=== PATIENT | female | born 1940 ===

== ENCOUNTER 2020-03-14 15:13 | Inpatient (IN) | payer MEDICARE ==
[~2020-03-14] VITALS: Ht 157.5 cm; Wt 63.0 kg
--- NOTE | ~2020-03-14 | HEMODYNAMI ---
PATIENT:JACK HELM MEDICAL RECORD: [id number] : 42 LOCATION:[facility] D.2109 ADMISSION DATE: 03/14/20 Generatedon:03/24/202015:24 Patient name: JACK HELM Patient #: [id number] SSN: [id number] : 1940 Date of study: 03/24/2020 Page: Of Hemodynamic Procedure Report Patient Data Patient Demographics Procedure consent was obtained First Name: JACK Gender: Female Last Name: ALICJA : 1940 Patient #: [id number] Age: 79 year(s) Race: Unknown SSN: [id number] Additional ID: [id number] Contact details Address: [address] [place] [address] State: [place] City: [place] Zip code: [address] Past Medical History History of disease Date Diagnosis Comments Renal failure->Dialysis Allergies Allergen Reaction Date Comments Reported Codeine 03/24/2020 Admission Admission Data Admission Date: 03/14/2020 Admission Time: 18:47 Arrival Date: 03/24/2020 Arrival Time: 0:00 Room #: D.2109 Height (in.): 62.2 BSA: 1.7 (m2) Height (cm.): 158 BMI: 27.24 (kg/m2) Weight (lbs.): 149.92 Weight (kg.): 68 Medications upon Admission Medications Dosage Times Administered Last Remarks per Delivery Day Date and Time COLBY Inhibitor (any) Lab Results Lab Result Date: 03/24/2020 Lab Result Time: 0:00 Biochemistry Name Units Result Min Max Creatinine mg/dl 6.2 --(----)-* 0.6 1.3 eGFR ml/min 7.246824 *-(----)-- 90 120 AM Potassium mmol/l 4.8 --(---*)-- 3.5 5.1 CBC Name Units Result Min Max Hematocrit % 28.9 *-(----)-- 42 54 Hemoglobin g/dl 9.2 *-(----)-- 13.5 17.5 Procedure Procedure Types Cath Procedure Diagnostic Procedure [facility] w/Coronaries Procedure Description Procedure Date Procedure Date: 03/24/2020 Procedure Start Time: 15:13 Procedure End Time: 15:22 Procedure Staff Name Function David Nuñez MD Performing Physician Jania Hernandez RT Monitor Dora Lopez RT Scrub Angelica Medina RN Nurse Procedure Data Cath Procedure Fluoroscopy Diagnostic fluoroscopy Total fluoroscopy Time: 0.9 time: 0.9 min min Diagnostic fluoroscopy Total fluoroscopy dose: 272 dose: 272 mGy mGy Contrast Material Contrast Material Type Amount (ml) Isovue 300 54 Entry Location Entry Primary Successful Side Size Upsize Upsize Entry Closure Succes sful Closure Location (Fr) 1 (Fr) 2 (Fr) Remarks Device Remarks Femoral Left 5 Fr Exoseal artery Estimated blood loss: 5 ml Diagnostic catheters Device Type Used For End Catheter Placement MULTIPACK JL 4.0 5Fr Left Coronary catheter Angiography MULTIPACK 3DRC 5Fr Right Coronary catheter Angiography MULTIPACK Pigtail 5 Fr LV Angiography catheter Procedure Complications No complications Procedure Medications Medication Administration Route Dosage 0.9% NaCl I.V. 100 ml/hr Oxygen 6 l/min Lidocaine 2% added to field 20 Heparin Flush Bag added to field 2 bags (1000units/500ml NS) Versed I.V. 1 mg Fentanyl I.V. 25 mcg Hemodynamics Rest BSA: 1.7 (m2) HGB: 9.2 (g/dl) O2 Consumption: Estimated: 157.58 (ml/min) O2 Cons umption indexed: Estimated:92.69 (ml/min/m) Heart Rate: 76 (bpm) Pressure Samples Time Site Value (mmHg) Purpose Heart Use Rate(bpm) 15:16 LV 163/14,33 Snapshot 80 15:18 AO 156/68(102) Pullback 80 15:18 LV 56/56,-18 Pullback 80 Gradients Valve Time Site 1 Site 2 Mean SEP/DFP Peak To Heart Use (mmHg) (sec/min) Peak Rate (mmHg) (bpm) Aortic 15:17 LV AO 80 Aortic 15:18 LV AO 0 80 56/56,-18 156/68(102) Calculations Valve P-P Mean Valve Index Valve Source Name Gradient Area Flow (cm2) Aortic 0 0 Snapshots Pre Cath Intra NCS Post Cath Vital Signs Time Heart Resp SPO2 etCO2 NIBP (mmHg) Rhythm Pain Sedation Rate (ipm) (%) (mmHg) Status Level (bpm) 15:03:59 78 25 97 0 108/98(104) NSR 0 (11) 10(A) , No pain 15:08:58 78 27 96 0 Measuring NSR 0 (11) 10(A) , No pain 15:09:07 77 26 97 0 170/88(115) NSR 0 (11) 10(A) , No pain 15:13:33 80 21 95 0 166/89(128) NSR 0 (11) 10(A) , No pain 15:17:57 80 20 96 0 168/92(120) NSR 0 (11) 10(A) , No pain 15:22:21 78 19 93 0 156/89(130) NSR 0 (11) 10(A) , No pain Medications Time Medication Route Dose Verified Delivered Reason Notes Effe ctiveness by by 15:03:05 0.9% NaCl I.V. 100 David Angelica used for ml/hr SavannahCrescencio Medina procedure MD GREY 15:03:11 Oxygen HFNC 6 David Angelica used for l/min St Crescencio Medina procedure MD GREY 15:03:17 Lidocaine 2% added 20ml David Hernandez for local to vial [facility] anesthetic field MD AGUERO 15:03:21 Heparin Flush added 2 David David used for Bag to bags [facility] John procedure (1000units/500ml field MD AGUERO NS) 15:11:58 Versed I.V. 1 mg David Chuayla for St Crescencio Medina sedation MD GREY 15:12:04 Fentanyl I.V. 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 14:39:50 Pt presents w/ arrythmia, sustained VT during dialysis. 14:41:25 Procedure Status Urgent Heart Cath (IP). 14:41:28 Dora Lopez RT(R) sent for patient. Start room use. 14:41:29 Time tracking: Regular hours (M-F 7:00 - 5:00) 14:41:34 Plan of Care:Hemodynamics will remain stable., Cardiac rhythm will remain stable., Comfort level will be maintained., Respiratory function will remain adequate., Patient/ family verbilizes understanding of procedure., Procedure tolerated without complication., Recovers from procedure without complications.. 14:41:40 Full Disclosure recording started 14:41:44 H&P Date Dictated: 03/24/2020 Within 30 days and on chart.. 14:41:51 Patient NPO since Midnight. 14:42:00 Patient allergic to Codeine 14:42:04 Is the patient allergic to Iodine/contrast media? No. 14:42:05 Was the patient premedicated? N/A 14:42:08 Is patient on blood thinner?No 14:42:12 ACC The patient was administered the following blood thiners within the last 24 hours: ACCLovenox 14:42:25 Patient diabetic? Yes. 14:42:59 Patient not . Patient is over age 55. 14:43:07 Stress Test: no; N/A ? 14:43:56 Lab Result : Potassium 4.8 mmol/l 14:43:56 Lab Result : eGFR AM 7.982079 ml/min 14:43:56 Lab Result : Creatinine 6.2 mg/dl 14:43:56 Lab Result : Hemoglobin 9.2 g/dl 14:43:56 Lab Result : Hematocrit 28.9 % 14:44:00 Lab results completed and on chart. 14:45:07 Patient Height : 62.2 inches 14:45:11 Patient Weight : 149.92 lbs 14:45:52 Diagnostic Cath Status : Urgent 14:48:16 Patient received from Med II to CCL 1 Alert and oriented. Tansferred to table in Supine position. 14:48:18 Warm blankets applied, and sydnie hugger turned on for patient comfort. 14:48:18 Correct patient and procedure confirmed by team. 14:48:19 ECG and BP/O2 sat monitors applied to patient. 14:48:22 Pre-procedure instructions explained to patient. 14:48:22 Pre-op teaching completed and patient verbalized understanding. 14:48:43 Family unavailable. 14:48:50 Risk of Mortality: 2.7 14:48:53 Risk of blood transfusion: 20.9 14:48:56 Risk of NUZHAT: 21.0 15:02:39 Vital chart was started 15:03:05 0.9% NaCl 100 ml/hr I.V. was administered by Angelica Medina RN; used for procedure; Verbal order read back and verified. 15:03:11 Oxygen 6 l/min HFNC was administered by Angelica Medina RN; used for procedure; Verbal order read back and verified. 15:03:17 Lidocaine 2% 20ml vial added to field was administered by David Nuñez MD; for local anesthetic; Verbal order read back and verified. 15:03:21 Heparin Flush Bag (1000units/500ml NS) 2 bags added to field was administered by David Nuñez MD; used for procedure; Verbal order read back and verified. 15:05:04 Baseline sample Acquired. 15:05:24 ----Pre-sedation anethsthesia assessment.---- 15:05:31 Snore? Yes 15:06:04 Previous problem with sedation/anesthesia? No ? 15:06:08 Sleep apnea? No 15:06:10 Deviated septum? Unknown 15:06:13 Opens mouth fully? Yes 15:06:16 Sticks out tongue? Yes 15:06:33 Airway obstruction? Yes ASTHMA 15:06:35 Pt arrived to on 6L HFNC. HONEY EtCO2 d/t HFNC. 15:06:40 Dentures? Yes IN TIGHT 15:06:52 Pre procedure: left dorsailis pedis pulse 1+ Palpable, but thready & weak; easily obliterated 15:07:09 IV patent on arrival in left forearm with 0.9% NaCl at KVO. 15:07:21 Left groin area was prepped with chlora-prep and draped in sterile fashion 15:07:27 Alarms reviewed by R. N. 15:07:28 Sharps counted by scrub and verified by R.N. 15:07:34 Use device set Femoral Dx 15:10:31 ACIST Syringe (76367) opened to sterile field. 15:10:34 Bag Decanter () opened to sterile field. 15:10:35 Medline Cath Pack ([id number]) opened to sterile field. 15:10:42 ACIST Hand Control (90978) opened to sterile field. 15:10:43 ACIST Manifold (99019) opened to sterile field. 15:10:43 DIAGNOSTIC Multipack 5Fr catheter set (KI5555) opened to sterile field. 15:10:46 SHEATH 5FR Stamping Ground (MNC302) opened to sterile field. 15:10:47 EMERALD Guide Wire (340-446) opened to sterile field. 15:10:49 Tegaderm 4 x 4 (1626W) opened to sterile field. 15:11:01 Physician arrived 15:11:02 --------ALL STOP TIME OUT------ 15:11:03 Final Timeout: patient, procedure, and site verified with staff and physician. All members of the team are in agreement. 15:11:06 Left groin site verified by team. 15:11:11 Fire Safety Assessment: A--An alcohol-based skin anteseptic being used preoperatively., C--Open oxygen or nitrous oxide is being used., D--An ESU, laser, or fiber-optic light is being used. 15:11:15 Physical assessment completed. ASA score P 3 - A patient with severe systemic disease as per David Nuñez MD. 15:11:58 Versed 1 mg I.V. was administered by Angelica Medina RN; for sedation; Verbal order read back and verified. 15:12:04 Fentanyl 25 mcg I.V. was administered by Angelica Medina RN; for sedation; Verbal order read back and verified. 15:12:12 5) <15 or on dialysis Very severe, or end stage kidney failure. 15:12:18 Maximum allowable contrast dose (3.7 X eGFR X 0.75)19 ml. 15:12:25 Sedation plan: IV Moderate Sedation Medication:Versed, Fentanyl 15:12:31 Procedure started. 15:13:06 Local anesthetic to left femerol artery with Lidocaine 2% by David Nuñez MD.INITIAL ACCESS ONLY 15:13:20 A 5 Fr sheath was inserted into the Left Femoral artery 15:13:44 A MULTIPACK JL 4.0 5Fr catheter was advanced over the wire and used for Left Coronary Angiography. 15:13:53 LCA angiography performed. 15:13:57 Injector settings: Ml/sec: 3, Volume: 6, 15:14:35 Catheter removed. 15:14:38 Zero performed for pressure channel P1 15:14:51 Zero performed for pressure channel P1 15:15:08 A MULTIPACK 3DRC 5Fr catheter was advanced over the wire and used for Right Coronary Angiography. 15:15:38 RCA angiography performed. 15:15:44 Injector settings: Ml/sec: 3, Volume: 6, 15:15:48 Catheter removed. 15:15:51 Zero performed for pressure channel P1 15:16:04 A MULTIPACK Pigtail 5 Fr catheter was advanced over the wire and used for LV Angiography. 15:16:18 Arrival Date: 03/24/2020 12:00:00 AM 15:17:04 LV gram done using MEJIA 15:17:08 Injector settings: Ml/sec: 5, Volume: 15, 15:18:06 LV hemodynamics recorded. 15:18:14 EF : 35 % 15:18:16 Catheter removed. 15:18:22 EXOSEAL 5Fr (EX500) opened to sterile field. 15:18:44 Contrast amount:Isovue 300 54ml. 15:18:49 Maximum allowable dose exceeded? Yes. 15:18:50 Sharps counted by scrub and verified by R.N. 15:19:00 Sheath removed intact; hemostasis achieved with Exoseal to the Left Femoral artery. 15:19:04 Procedure ended.(Physican Out) 15:19:37 Fluoroscopy time 00.90 minutes. 15:19:43 Fluoroscopy dose: 272 mGy 15:19:43 Flurop Dose total: 272 15:19:52 Dose Area Product 78360 mGy/cm. 15:20:07 Insertion/operative site no bleeding no hematoma. 15:20:14 Post-op/insertion site Left Femoral artery dressed using a 4 x 4 and Tegaderm. 15:20:22 Post-procedure physical assessment completed. ASA score P 3 - A patient with severe systemic disease as per David Nuñez MD. 15:20:29 Post procedure rhythm: unchanged. 15:20:39 Estimated blood loss: 5 ml 15:20:55 Post procedure instruction explained to patient.Patient verbalizes understanding. 15:20:56 Patient needs reinforcement of post procedure teaching. 15:21:33 Procedure and supply charges have been captured, reviewed, submitted and are correct. 15:21:40 Procedure Complication : No complications 15:21:47 Vital chart was stopped 15:21:51 [facility] Findings: mild to moderate CAD (<70%) 15:21:53 Operative report dictated upon procedure completion. 15:21:54 See physician's report for complete and final results. 15:21:57 Report given to [facility]. 15:22:02 Patient transfered to [facility] with Bed. 15:22:05 Procedure ended. 15:22:05 Full Disclosure recording stopped 15:22:27 End room use (Document Last) Device Usage Item Name Manufacture Quantity Catalog Hospital Part Current Minimal L ot# / Number Charge Number Stock Stock Serial# Code ACIST Acist 1 13317 411702 [id number] 605225 20 Syringe Medical (70709) Systems Inc Bag Microtek 1 2001S [id number] 60107 200872 5 Decanter Medical Inc. () Medline Medline 1 [id number] 37535 934280 5 Cath Pack ([id number]) ACIST Hand Acist 1 92338 735129 332522 779420 5 Control Medical (16233) Systems Inc ACIST Acist 1 34387 508375 114820 303051 5 Manifold Medical (63142) Systems Inc DIAGNOSTIC Cardinal 1 [id number] 331991 97956 390384 30 Multipack Health 5Fr catheter set (GY1470) SHEATH 5FR Terumo 1 [id number] 736074 721353 709778 5 Stamping Ground (JYE563) EMERALD Cardinal 1 502-455 409667 030531 871086 5 Guide Wire [facility] (502-455) Tegaderm 4 3M 1 1626W 839387 702495 513155 5 x 4 (1626W) MULTIPACK Cardinal 1 180337 5 JL 4.0 5Fr Health catheter MULTIPACK Cardinal 1 612131 5 3DRC 5Fr Health catheter MULTIPACK Cardinal 1 748227 5 Pigtail 5 Health Fr catheter EXOSEAL 5Fr Cardinal 1 EX500 485639 [id number] [id number] 10 (EX500) Health Signature Audit [place] Stage Time Signature Unsigned Intra-Procedure 03/24/2020 Jania 3:22:51 PM David RT(R) (CV) Intra-Procedure 03/24/2020 Angelica Medina 3:23:31 PM RN Intra-Procedure 03/24/2020 David Domínguez 3:24:04 PM [place] [address]
--- NOTE | ~2020-03-14 | HEMODYNAMI ---
PATIENT:JACK HELM MEDICAL RECORD: [id number] : 42 [address] [id number] ADMISSION DATE: 03/14/20 Generatedon:03/28/202013:36 Patient name: JACK HELM Patient #: [id number] SSN: [id number] : 1940 Date of study: 03/28/2020 Page: Of Hemodynamic Procedure Report Patient Data Patient Demographics Procedure consent was obtained First Name: JACK Gender: Female Last Name: ALICJA : 1940 Patient #: [id number] Age: 79 year(s) Race: SSN: [id number] Additional ID: [id number] Contact details Address: [address] [place] [address] State: [place] City: [place] Zip code: [address] Past Medical History History of disease Date Diagnosis Comments Renal failure->Dialysis Allergies Allergen Reaction Date Comments Reported Codeine 03/24/2020 Codeine 03/28/2020 Admission Admission Data Admission Date: 03/14/2020 Admission Time: 18:47 Arrival Date: 03/24/2020 Arrival Time: 0:00 Admit Source: Emergency Insurance Payor: Medicare, department Medicaid Room #: D.CV05 [facility] #: [id number] Height (in.): 62.2 BSA: 1.7 (m2) Height (cm.): 158 BMI: 27.24 (kg/m2) Weight (lbs.): 149.92 Weight (kg.): 68 Medications upon Admission Medications Dosage Times Administered Last Remarks per Delivery Day Date and Time COLBY Inhibitor (any) Lab Results Lab Result Date: 03/28/2020 Lab Result Time: 0:00 Biochemistry Name Units Result Min Max BUN mg/dl 54 --(----)-* 7 18 Creatinine mg/dl 9.1 --(----)-* 0.6 1.3 CBC Name Units Result Min Max Hemoglobin g/dl 8.6 *-(----)-- 13.5 17.5 Procedure Procedure Types Cath Procedure Diagnostic Procedure PPM/ICD PPM Dual Implant Procedure Description Procedure Date Procedure Date: 03/28/2020 Procedure Start Time: 13:08 Procedure Staff Name Function David Nuñez MD Performing Physician Orlin Scott MD Assisting physician Patsy Giles RT Scrub Angelica Medina RN Nurse Fili Henning RT Monitor Procedure Data Cath Procedure Fluoroscopy Diagnostic fluoroscopy Total fluoroscopy Time: 1.2 time: 1.2 min min Diagnostic fluoroscopy Total fluoroscopy dose: dose: 25.62 mGy 25.62 mGy Estimated blood loss: 5 ml Procedure Complications No complications Procedure Medications Medication Administration Route Dosage 0.9% NaCl I.V. 50 ml/hr Oxygen 100 Lidocaine 1% added to field 20 Ancef Irrigation Topical 1 g (1gm/500ml NS) unlisted medication 1 mcg/min unlisted medication 2 mg/min Fentanyl I.V. 100 mcg/hr Hemodynamics Rest BSA: 1.7 (m2) HGB: 8.6 (g/dl) O2 Consumption: Estimated: 131.74 (ml/min) O2 Cons umption indexed: Estimated:77.49 (ml/min/m) Heart Rate: 36 (bpm) Snapshots Pre Cath Intra NCS Post Cath Vital Signs Time Heart Resp SPO2 etCO2 NIBP (mmHg) Rhythm Pain Sedation Rate (ipm) (%) (mmHg) Status Level (bpm) 12:59:35 37 16 100 0 Measuring SB 0 (11) 3(A) , No pain 13:00:02 37 16 100 0 166/41(123) SB 0 (11) 3(A) , No pain 13:04:28 38 16 100 0 163/58(113) SB 0 (11) 3(A) , No pain 13:09:27 37 16 100 0 Measuring SB 0 (11) 3(A) , No pain 13:10:00 37 12 100 0 135/80(117) SB 0 (11) 3(A) , No pain 13:14:14 39 16 100 0 145/66(108) SB 0 (11) 3(A) , No pain 13:19:13 38 16 100 0 Measuring SB 0 (11) 3(A) , No pain 13:19:45 38 16 100 0 178/59(128) SB 0 (11) 3(A) , No pain 13:24:10 69 16 100 0 174/70(119) Paced 0 (11) 3(A) , No pain 13:28:34 69 16 100 0 179/68(127) Paced 0 (11) 3(A) , No pain Medications Time Medication Route Dose Verified Delivered Reason Notes Effectiveness by by 12:48:21 Oxygen vent 100% David Thornea for low [address] Crescencio Medina sats intubated RN upon arrival to 12:48:22 0.9% NaCl I.V. 50 David Angelica used for infusing ml/hr [facility] Medina procedure upon RN arrival to 12:49:12 Lidocaine 1% added 20ml Jewish [facility] for local pt to vial x Alejandro Scott MD anesthetic intubated field 2 upon arrival to 12:49:24 Ancef Topical 1 g Jewish [facility] used for Irrigation Alejandro Scott MD procedure (1gm/500ml NS) 12:49:41 Neosynephrine I.V 1 David Angelica infusing (8mg/250mL) mcg/min [facility] Medina upon RN arrival to 12:50:58 Lidocaine I.V 2 David Angelica for infusing (2mg/ 500mL) mg/min [facility] Medina arrhythmia upon RN arrival to 12:52:33 Fentanyl I.V. 100 David Angelica for infusing mcg/hr [facility] Cres[facility] Medina sedation upon MD GREY arrival to Procedure Log Time Note 12:07:36 Diagnostic Cath Status : Urgent 12:08:01 Patient Weight : 149.92 lbs 12:08:01 Patient Height : 62.2 inches 12:08:43 Informed consent obtained and on chart 12:09:40 Admit Source: Emergency department 12:10:01 Insurance Payor : Medicare, Medicaid 12:12:38 Lab Result : BUN 54 mg/dl 12:12:38 Lab Result : Hemoglobin 8.6 g/dl 12:12:38 Lab Result : Creatinine 9.1 mg/dl 12:13:11 Procedure Status PPM/ Gen Change/ Lead Revision/ Temp. 12:24:16 Angelica Medina RN sent for patient. Start room use. 12:24:17 Time tracking: Regular hours (M-F 7:00 - 5:00) 12:24:28 Plan of Care:Hemodynamics will remain stable., Cardiac rhythm will remain stable., Comfort level will be maintained., Respiratory function will remain adequate., Patient/ family verbilizes understanding of procedure., Procedure tolerated without complication., Recovers from procedure without complications.. 12:48:21 Oxygen 100% FiO2 vent was administered by Angelica Medina RN; for low 02 sats; pt intubated upon arrival to Verbal order read back and verified. 12:48:22 0.9% NaCl 50 ml/hr I.V. was administered by Angelica Medina RN; used for procedure; infusing upon arrival to Verbal order read back and verified. 12:49:04 Patient received from CVICU to [facility] 3 On ventilator. Tansferred to table in Supine position. 12:49:06 Warm blankets applied, and sydnie hugger turned on for patient comfort. 12:49:06 Correct patient and procedure confirmed by team. 12:49:07 ECG and BP/O2 sat monitors applied to patient. 12:49:12 Lidocaine 1% 20ml vial x 2 added to field was administered by Orlin Scott MD; for local anesthetic; pt intubated upon arrival to Verbal order read back and verified. 12:49:19 H&P Date Dictated: 03/27/2020 Within 30 days and on chart., H&P Addendum completed by physician on day of procedure. (MUST COMPLETE FOR ALL OUTPATIENTS). 12:49:24 Ancef Irrigation (1gm/500ml NS) 1 g Topical was administered by Orlin Scott MD; used for procedure; Verbal order read back and verified. 12:49:41 Neosynephrine (8mg/250mL) 1 mcg/min I.V was administered by Angelica Medina RN; ; infusing upon arrival to Verbal order read back and verified. 12:50:58 Lidocaine (2mg/ 500mL) 2 mg/min I.V was administered by Angelica Medina RN; for arrhythmia; infusing upon arrival to Verbal order read back and verified. 12:52:30 Patient allergic to Codeine 12:52:32 Is the patient allergic to Iodine/contrast media? No. 12:52:33 Fentanyl 100 mcg/hr I.V. was administered by Angelica Medina RN; for sedation; infusing upon arrival to Verbal order read back and verified. 12:52:36 Is patient on blood thinner?No 12:53:34 Patient diabetic? No. 12:53:42 Patient not . Patient is over age 55. 12:53:45 Previous problem with sedation/anesthesia? No ? 12:53:48 Snore? Unknown 12:53:49 Sleep apnea? Unknown 12:53:51 Deviated septum? Unknown 12:53:53 Opens mouth fully? Unknown 12:53:54 Sticks out tongue? Unknown 12:53:59 Airway obstruction? Yes ASTHMA 12:54:05 Dentures? Yes IN TIGHT 12:54:12 Lab results completed and on chart. 12:54:17 Left chest area was prepped with chlora-prep and draped in sterile fashion 12:54:18 Alarms reviewed by R. N. 12:54:18 Sharps counted by scrub and verified by R.N. 12:54:27 [employer] financial services representative JULI ZULUAGA present for procedure. 12:54:35 Pre sharps counted by scrub and verified by RN: Sutures: 7; Sponges: 5; Stick needles: 2; Skin needles: 2; Blade: 1; Cautery: 1 12:54:37 Grounding pad site Left thigh. 12:54:38 Grounding pad site free from injury. 12:55:22 Use device set ALEJANDRO PPM 12:55:23 2-0 Ticron Multipack ([id number]) opened to sterile field. 12:55:24 3-0 Vicryl Single Pack [id number] opened to sterile field. 12:55:24 5-0 Monocryl PS2 [id number] opened to sterile field. 12:55:25 Cautery Tip Medical Transcriber opened to sterile field. 12:55:25 Cautery Pushbutton Pencil opened to sterile field. 12:55:25 Mepilex Dressing (624049) opened to sterile field. 12:55:27 Immobilizer Sling Medium opened to sterile field. 12:55:29 Medtronic 4074-52 PPM Lead opened to sterile field. 12:55:29 Medtronic 4574-45 PPM Lead opened to sterile field. 12:55:[address] Generator [id number] opened to sterile field. 12:57:15 Pt arrived to from CVICU intubated/sedated on Fentanyl continuous drip. 100% FiO2 on ventilator. HONEY EtCO2 d/t vent. VSS. 12:57:45 Vital chart was started 13:04:40 Baseline sample Acquired. 13:04:41 Full Disclosure recording started 13::44 Rhythm: sinus bradycardia 13::49 Physician arrived 13::49 --------ALL STOP TIME OUT------ 13::49 Final Timeout: patient, procedure, and site verified with staff and physician. All members of the team are in agreement. 13::57 Left chest site verified by team. 13:05:00 Fire Safety Assessment: A--An alcohol-based skin anteseptic being used preoperatively., C--Open oxygen or nitrous oxide is being used., D--An ESU, laser, or fiber-optic light is being used. 13:05:03 Physical assessment completed. ASA score P 4 - A patient with severe systemic disease that is a constant threat to life as per David Nuñez MD. 13:05:11 Sedation plan: Local Anesthetic Medication:Lidocaine 13:08:32 Lidocaine 1% was administered to left subclavicular area by Orlin Scott MD . 13:11:01 Incision made to left subclavicular area. 13:11:02 Generator pocket made/opened. 13:12:05 Left subclavian vein accessed with 7Fr Peel Away Sheath. 13:12:29 Left subclavian vein accessed with 7Fr Peel Away Sheath. 13:12:37 Ventricular lead inserted and advanced. 13:15:06 Ventricular lead positioned. 13:15:59 Atrial lead inserted and advanced. 13:18:23 Ventricular lead tested. 13:18:25 Atrial lead positioned. 13:18:28 Atrial lead tested. 13:18:29 Peel-a-way sheath was split and removed. 13:18:29 Peel-a-way sheath was split and removed. 13:18:33 PPM Dual was attached to lead(s) and inserted into pocket. 13:18:35 Device pocket was irrigated with Ancef. 13:20:45 Ventricular lead attachment was completed with 2-0 ticron. 13:20:48 Atrial lead attachment was completed with 2-0 ticron. 13:21:44 Generator was sutured in place with 2-0 ticron. 13:22:48 Subcutaneous closure was completed with 3-0 vicryl plus. 13:24:53 Parameters-- Generator: Mode: DDDR. Lower Rate: 70bpm. Upper Rate: 120bpm. 13:25:17 Parameters--Atrial P/R Wave: ?mV. Current: 0.6mA; Threshold: 0.4V; Impedence: 514OHMS. 13:25:37 Parameters--Ventricular P/R Wave: 7.2mV. Current: 0.3mA; Threshold: 0.4V; Impedence: 966OHMS. 13:25:45 Skin closure was completed with 5-0 monocryl. 13:28:39 Lt Chest incision was dressed with Mepilex dressing. 13:28:42 Procedure ended.(Physican Out) 13:29:49 Fluoroscopy time 01.20 minutes. 13:29:54 Flurop Dose total: 25.62 13:29:54 Fluoroscopy dose: 25.62 mGy 13:30:06 Dose Area Product 271.77 mGy/cm. 13:30:11 Insertion/operative site no bleeding no hematoma. 13:30:16 Post-op/insertion site Left Chest area dressed using a Mepilex dressing. 13:30:26 Post left subclavian vein:stable, soft, clean and dry 13:30:28 Post Procedure Pulses reassessed and unchanged 13:30:45 Post-procedure physical assessment completed. ASA score P 4 - A patient with severe systemic disease that is a constant threat to life as per David Nuñez MD. 13:31:00 Post procedure rhythm: sinus rhythm , paced 13:31:03 Estimated blood loss: 5 ml 13:31:04 Post procedure instruction explained to patient.Patient verbalizes understanding. 13:31:05 Patient needs reinforcement of post procedure teaching. 13:31:31 Procedure and supply charges have been captured, reviewed, submitted and are correct. 13:31:33 Procedure Complication : No complications 13:31:36 Vital chart was stopped 13:31:38 Operative report dictated upon procedure completion. 13:31:39 See physician's report for complete and final results. 13:31:45 Report given to CVICU. 13:31:48 Patient transfered to CVICU with Stretcher. 13:31:51 End room use (Document Last) Device Usage Item Name Manufacture Quantity Catalog Hospital Part Current Minima l Lot# / Number Charge Number Stock Stock Serial# Code 2-0 Ticron Ethicon 4 [id number] [id number] 48890 054461 5 Multipack ([id number]) 3-0 Vicryl Ethicon 1 [id number] 083064 864842 232430 5 Single Pack [id number] 5-0 Monocryl Ethicon 1 [id number] 360169 247170 794625 5 PS2 Y495G Cautery Tip Microtek 1 [id number] 252898 176907 607749 5 Medical Transcriber Medical Inc. Cautery Microtek 1 [id number] 433021 72553 132115 5 Pushbutton Medical Inc. Pencil Mepilex Cardinal 1 156073 317105 890061 822606 5 Dressing Health (552819) Immobilizer Cardinal 1 [id number] 315110 587655 423193 5 Sling Medium Health Medtronic Medtronic 1 4074-52 230868 291932 395463 5 [id number] 4074-52 PPM EXP 05/21/20 Lead Medtronic Medtronic 1 4574-45 746386 459873 170705 5 [id number] 4574-45 PPM EXP:11/04/21 Lead Medtronic Medtronic 1 [id number] 818994 [id number] 283661 [id number] EXP:07/23/21 Generator [id number] Signature Audit [place] Stage Time Signature Unsigned Intra-Procedure 03/28/2020 Angelica Medina 1:34:03 PM RN; David Nuñez MD [address] [place] [address]
[2020-03-14 15:37] LABS: RBC 2.17 10x6/uL (4.00-5.40); WBC 20.1 10x3/uL (4.8-10.8)
[2020-03-14 15:41] LABS: HEMATOCRIT 21.8 % (36.0-48.0); HEMOGLOBIN 6.8 g/dL (12-16); MCH 31.3 pg (26.0-34.0); MCHC 31.2 g/dL (31.0-37.0); MCV 100.5 fL (80.0-100.0); MEAN PLATELET VOLUME 9.7 fL (7.4-10.4); PLATELET COUNT 175 10x3/uL (130-400)
[2020-03-14 15:43] LABS: INR 1.34 (0.85-1.17); PROTIME 16.5 SECONDS (11.6-15.0)
[2020-03-14 15:44] LABS: APTT 82.7 SECONDS (22.8-39.4)
[2020-03-14] MEDS ORDERED: AMITRIPTYLINE H50 MG PO (15:59)
[2020-03-14] MEDS ORDERED: [UNRECOGNIZED DRUG - OTHER] (15:59)
[2020-03-14] MEDS ORDERED: COREG6.25 MG PO (16:00)
[2020-03-14] MEDS ORDERED: LIPITOR40 MG PO (16:00)
[2020-03-14] MEDS ORDERED: BUSPAR5 MG PO (16:00)
[2020-03-14] MEDS ORDERED: NORVASC2.5 MG PO (16:00)
[2020-03-14] MEDS ORDERED: ASPIRIN81 MG PO (16:00)
[2020-03-14] MEDS ORDERED: COZAAR100 MG PO (16:01)
[2020-03-14] MEDS ORDERED: CELEXA40 MG PO (16:01)
[2020-03-14] MEDS ORDERED: LASIX80 MG PO (16:01)
[2020-03-14] MEDS ORDERED: HYDROCODON-ACE1 EAC7 PO (16:01)
[2020-03-14] MEDS ORDERED: MIRALAX17 GM PO (16:02)
[2020-03-14] MEDS ORDERED: MULTI-DAY VITAM1 TAB PO (16:02)
[2020-03-14] MEDS ORDERED: PRILOSEC PO (16:03)
[2020-03-14] MEDS ORDERED: REQUIP0.25 MG PO (16:04)
[2020-03-14] MEDS ORDERED: ZYRTEC10 MG PO (16:04)
[2020-03-14 16:05] LABS: ALBUMIN 2.1 g/dL (3.4-5.0); ANION GAP 21.2 mmol/L (8-16); BILIRUBIN - TOTAL 0.52 mg/dL (0.2-1.3); CARBON DIOXIDE 16.7 mmol/L (21.0-32.0); CREATININE - SERUM 9.4 mg/dL (0.6-1.3); MAGNESIUM - SERUM 1.3 mg/dL (1.8-2.4); POTASSIUM - SERUM 4.9 mmol/L (3.5-5.1); PROTEIN - SERUM 4.2 g/dL (6.4-8.2)
--- NOTE | 2020-03-14 16:09 | NUR ---
1540 UNIT 1 OF O NEG EMERGENCY RELEASE BLOOD INFUSION STARTED. NO SIGN OF REACTION NOTED.
[2020-03-14 16:12] LABS: CALCIUM 6.6 mg/dL (8.5-10.1); TROPONIN-I 0.121 ng/mL (0.000-0.060)
--- NOTE | 2020-03-14 16:13 | NUR ---
CRITICAL LAB: CALCIUM 6.[address] CHOU NOTIFIED
[2020-03-14 16:31] LABS: EOSINOPHILS 5 % (0-7); LYMPHOCYTES 23 % (15-50); NEUTROPHILS 72 % (40-80); PLATELET ESTIMATE NORMAL
--- NOTE | 2020-03-14 16:39 | NUR ---
1608 UNIT 1 OF O NEG INFUSION COMPLETE, NO SIGNS OF REACTION.
--- NOTE | 2020-03-14 16:39 | NUR ---
1530 DR. HAWKINS AT BEDSIDE FOR PATIENT EVAL.
[2020-03-14 19:34] LABS: BASOPHILS 0.3 % (0-2); EOSINOPHILS 0.7 % (0-7); IMMATURE GRANULOCYTES 0.4 % (0-5); LYMPHOCYTES 8.1 % (15-50); MCH 32.2 pg (26.0-34.0); MCHC 32.9 g/dL (31.0-37.0); MEAN PLATELET VOLUME 10.3 fL (7.4-10.4); MONOCYTES 8.1 % (2-11); NEUTROPHILS 82.4 % (40-80); PLATELET COUNT 165 10x3/uL (130-400); RDW 14.1 % (11.5-14.5); WBC 18.3 10x3/uL (4.8-10.8)
[2020-03-14 19:35] LABS: HEMATOCRIT 31.3 % (36.0-48.0); HEMOGLOBIN 10.3 g/dL (12-16); MCV 97.8 fL (80.0-100.0)
[2020-03-14 19:40] LABS: ANION GAP 21.4 mmol/L (8-16); CALCIUM 7.1 mg/dL (8.5-10.1); CARBON DIOXIDE 17.4 mmol/L (21.0-32.0); CREATININE - SERUM 9.1 mg/dL (0.6-1.3); POTASSIUM - SERUM 5.8 mmol/L (3.5-5.1)
--- NOTE | 2020-03-14 20:15 | NUR ---
RECEIVED PATIENT TO ROOM 2108 VIA STRETCHER FROM SURGERY. PATIENT IS AAOX4, TRANSFERRED PATIENT TO BED X2 ASSIST. NO S/S OF DISTRESS OBSERVED, RR EVEN AND UNLABORED ON 4L O2 VIA NC. PATIENT RT SHOULDER/CHEST AREA VERY SWOLLEN, DR. HAWIKNS IS AWARE. RT UPPER ARM BRUISED, DRSG C/D/I. RT GROIN DRSG C/D/I. BANDAID TO RT NECK C/D/I. PIV TO LT THUMB, PATENT, SL. PATIENT DENIES NEEDS AT THIS TIME. CL IN REACH, BED LOCKED AND LOWERED. WILL CTM.
[2020-03-14 21:47] VITALS: BP 101/63
[2020-03-15 00:30] VITALS: BP 126/50
--- NOTE | 2020-03-15 02:30 | NUR ---
ASSISTED PATIENT TO BATHROOM AND BACK TO BED. PT C/O RT SHOULDER PAIN. ADMINISTERED PRN TRAMADOL PER ORDERS. WILL CTM.
--- NOTE | 2020-03-15 02:33 | NUR ---
I have reviewed this patient and I concur with the Shift Assessment completed by the Licensed Practical Nurse today this shift.
[2020-03-15 04:00] VITALS: BP 121/49
[2020-03-15 06:14] LABS: BASOPHILS 0.3 % (0-2); EOSINOPHILS 1.9 % (0-7); HEMATOCRIT 25.8 % (36.0-48.0); HEMOGLOBIN 8.4 g/dL (12-16); IMMATURE GRANULOCYTES 0.3 % (0-5); MCHC 32.6 g/dL (31.0-37.0); MEAN PLATELET VOLUME 10.2 fL (7.4-10.4); MONOCYTES 8.1 % (2-11); NEUTROPHILS 72.4 % (40-80); PLATELET COUNT 144 10x3/uL (130-400); RBC 2.71 10x6/uL (4.00-5.40); RDW 14.9 % (11.5-14.5)
[2020-03-15 06:21] LABS: MCV 95.2 fL (80.0-100.0); WBC 12.3 10x3/uL (4.8-10.8)
[2020-03-15 06:41] LABS: INR 1.25 (0.85-1.17); PROTIME 15.6 SECONDS (11.6-15.0)
--- NOTE | 2020-03-15 07:20 | NUR ---
RECIEVE REPORT. RESTING IN BED WITH EYES CLOSED. NO SIGNS OF DISTRESS. CONTINUE PLAN OF CARE AND SAFETY PRECAUTIONS.
[2020-03-15 07:44] LABS: ALBUMIN 2.5 g/dL (3.4-5.0); ANION GAP 23.5 mmol/L (8-16); BILIRUBIN - DIRECT 0.11 mg/dL (0.00-0.30); BILIRUBIN - INDIRECT 0.27 mg/dL (0.00-1.00); BILIRUBIN - TOTAL 0.38 mg/dL (0.2-1.3); CALCIUM 7.6 mg/dL (8.5-10.1); CARBON DIOXIDE 16.1 mmol/L (21.0-32.0); CREATININE - SERUM 9.3 mg/dL (0.6-1.3); LDL-HDL RATIO 0.6 ratio (1.5-3.5); POTASSIUM - SERUM 5.6 mmol/L (3.5-5.1); PROTEIN - SERUM 4.7 g/dL (6.4-8.2)
[2020-03-15 07:45] LABS: TROPONIN-I 0.142 ng/mL (0.000-0.060)
[2020-03-15 08:49] VITALS: BP 170/53
[2020-03-15 10:19] VITALS: BMI 24.7
[2020-03-15 11:31] LABS: BASOPHILS 0.3 % (0-2); EOSINOPHILS 4.2 % (0-7); HEMATOCRIT 23.7 % (36.0-48.0); IMMATURE GRANULOCYTES 0.3 % (0-5); LYMPHOCYTES 19.1 % (15-50); MCH 31.9 pg (26.0-34.0); MCHC 33.8 g/dL (31.0-37.0); MCV 94.4 fL (80.0-100.0); MEAN PLATELET VOLUME 10.2 fL (7.4-10.4); MONOCYTES 9.5 % (2-11); NEUTROPHILS 66.6 % (40-80); PLATELET COUNT 141 10x3/uL (130-400); RBC 2.51 10x6/uL (4.00-5.40); RDW 14.7 % (11.5-14.5); WBC 11.6 10x3/uL (4.8-10.8)
[2020-03-15 15:23] VITALS: BP 171/57
--- NOTE | 2020-03-15 19:01 | NUR ---
REPORT RECEIVED, WILL CONTINUE POC. PATIENT IS AAOX4, LYING IN SEMI-FOWLERS POSITION. NO S/S OF DISTRESS OBSERVED, RR EVEN AND UNLABORED ON ROOM AIR. PATIENT DENIES NEEDS AT THIS TIME. CL IN REACH, BED LOCKED AND LOWERED. WILL CTM.
[2020-03-15 20:00] VITALS: BP 143/54
[2020-03-16] VITALS: BP 137/57
[2020-03-16 04:00] VITALS: BP 171/69
--- NOTE | 2020-03-16 04:07 | NUR ---
I have reviewed this patient and I concur with the Shift Assessment completed by the Licensed Practical Nurse today this shift.
[2020-03-16 06:49] LABS: BASOPHILS 0.3 % (0-2); EOSINOPHILS 5.2 % (0-7); HEMATOCRIT 25.9 % (36.0-48.0); HEMOGLOBIN 8.5 g/dL (12-16); IMMATURE GRANULOCYTES 0.3 % (0-5); LYMPHOCYTES 20.3 % (15-50); MCHC 32.8 g/dL (31.0-37.0); MEAN PLATELET VOLUME 9.9 fL (7.4-10.4); MONOCYTES 10.9 % (2-11); PLATELET COUNT 140 10x3/uL (130-400); RBC 2.83 10x6/uL (4.00-5.40); RDW 16.5 % (11.5-14.5); WBC 9.9 10x3/uL (4.8-10.8)
[2020-03-16 07:01] LABS: MCV 91.5 fL (80.0-100.0)
[2020-03-16 07:06] LABS: ANION GAP 18.2 mmol/L (8-16); POTASSIUM - SERUM 4.9 mmol/L (3.5-5.1); VANCOMYCIN - RANDOM 5.8 ug/mL (10.0-20.0)
[2020-03-16 07:14] LABS: CARBON DIOXIDE 21.7 mmol/L (21.0-32.0); CREATININE - SERUM 6.5 mg/dL (0.6-1.3)
--- NOTE | 2020-03-16 07:49 | NUR ---
BLOOD SUGAR 69, APPLE JUICE WITH SUGAR GIVEN AT 0720, FSBS CHECKED AT 0750 AND RESULTED AT 140.
[2020-03-16 08:00] VITALS: BP 172/64
[2020-03-16 08:13] LABS: HEPATITIS C ANTIBODY <0.1 S/CO RAT (0.0-0.9)
[2020-03-16 11:00] VITALS: BP 158/61
[2020-03-16 15:00] VITALS: BP 169/71
--- NOTE | 2020-03-16 19:00 | NUR ---
REPORT RECEIVED, WILL CONTINUE POC. PATIENT IS AAOX4, LYING IN SUPINE POSITION. NO S/S OF DISTRESS OBSERVED, RR EVEN AND UNLABORED ON ROOM AIR. PATIENT DENIES NEEDS AT THIS TIME. CL IN REACH, BED LOCKED AND LOWERED. WILL CTM.
[2020-03-16 20:00] VITALS: BP 164/60
--- NOTE | 2020-03-17 03:52 | NUR ---
I have reviewed this patient and I concur with the Shift Assessment completed by the Licensed Practical Nurse today this shift.
[2020-03-17 04:00] VITALS: BP 156/66
--- NOTE | 2020-03-17 06:43 | NUR ---
LAB AT BEDSIDE, TRIED TO ASSIST WITH BLOOD DRAW BUT UNABLE TO OBTAIN. PATIENT MOVING TOO MUCH.
[2020-03-17 08:06] LABS: BACTERIA MODERATE /hpf (NEGATIVE); BILIRUBIN NEGATIVE (NEGATIVE); GLUCOSE 100 mg/dL (NEGATIVE); KETONE NEGATIVE (NEGATIVE); NITRITE NEGATIVE (NEGATIVE); RED CELLS - URINE OCC /hpf (0-5); UROBILINOGEN NORMAL (NORMAL); YEAST >1+ /hpf (NONE SEEN)
[2020-03-17 08:11] LABS: BASOPHILS 0.3 % (0-2); EOSINOPHILS 6.3 % (0-7); HEMATOCRIT 25.3 % (36.0-48.0); HEMOGLOBIN 8.3 g/dL (12-16); IMMATURE GRANULOCYTES 0.4 % (0-5); LYMPHOCYTES 10.9 % (15-50); MCH 30.3 pg (26.0-34.0); MCHC 32.8 g/dL (31.0-37.0); MCV 92.3 fL (80.0-100.0); MEAN PLATELET VOLUME 10.3 fL (7.4-10.4); MONOCYTES 8.4 % (2-11); NEUTROPHILS 73.7 % (40-80); PLATELET COUNT 162 10x3/uL (130-400); RBC 2.74 10x6/uL (4.00-5.40); RDW 15.8 % (11.5-14.5); WBC 11.1 10x3/uL (4.8-10.8)
[2020-03-17 08:29] LABS: ANION GAP 20.4 mmol/L (8-16); CALCIUM 8.4 mg/dL (8.5-10.1); PHOSPHOROUS 7.8 mg/dL (2.5-4.9); POTASSIUM - SERUM 5.4 mmol/L (3.5-5.1); VANCOMYCIN - RANDOM 14.7 ug/mL (10.0-20.0)
[2020-03-17 08:34] LABS: CREATININE - SERUM 8.4 mg/dL (0.6-1.3)
[2020-03-17 09:00] VITALS: BP 195/60
[2020-03-17 11:00] VITALS: BP 153/60
--- NOTE | 2020-03-17 12:54 | NUR ---
Nutrition Follow-up: States appetite is "pretty good". Declines Nepro. 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 Diet: Renal ADA PO intake: 63% x 6 meals Wt: 135# (03/15) Labs noted: Na 133, K+ 5.4, Glu 72, Ca 8.4, PO4 7.8 Meds reviewed -Encourage PO intake and honor food preferences within diet restrictions. -MD may consider PO4 binder 2/2 hyperphosphatemia. -Monitor wt; noted daily wts ordered. -RD following.
[2020-03-17 15:00] VITALS: BP 164/57
--- NOTE | 2020-03-17 19:07 | NUR ---
REPORT RECEIVED AND ROUNDING COMPLETE. ASSISTED PATIENT TO THE BATHROOM AND THEN BACK TO BED. GAIT A LITTLE UNSTEADY BUT STATES SHE IS FEELING STRONGER. PATIENT IS WEARNING NASAL CANNULA WITH O2 AT 4L. LEFT FOREARM PIV THAT IS SALINE LOCKED AT THIS TIME. LEFT ARM IS JADE SWOLLEN AND BRUISED WITH STICHES TO THE LEFT AC. HEMASPLIT TO THE RIGHT GROIN FOR DIALYSIS, DRESSING C/D/I. NO OTHER NEEDS AT THIS TIME, NO DISTRESS NOTED. CALL LIGHT WITHIN REACH AND BED IN LOWEST LOCKED POSITION.
[2020-03-17 20:00] VITALS: BP 156/68
[2020-03-18] VITALS: BP 161/67
[2020-03-18 04:00] VITALS: BP 179/63
[2020-03-18 06:51] LABS: BASOPHILS 0.3 % (0-2); EOSINOPHILS 8.7 % (0-7); HEMATOCRIT 23.4 % (36.0-48.0); IMMATURE GRANULOCYTES 0.7 % (0-5); LYMPHOCYTES 16.3 % (15-50); MCHC 32.1 g/dL (31.0-37.0); MCV 93.6 fL (80.0-100.0); MEAN PLATELET VOLUME 10.1 fL (7.4-10.4); MONOCYTES 10.9 % (2-11); NEUTROPHILS 63.1 % (40-80); PLATELET COUNT 178 10x3/uL (130-400); RDW 15.5 % (11.5-14.5); WBC 8.9 10x3/uL (4.8-10.8)
[2020-03-18 06:53] LABS: HEMOGLOBIN 7.5 g/dL (12-16)
[2020-03-18 07:41] LABS: ANION GAP 22.1 mmol/L (8-16); CALCIUM 8.3 mg/dL (8.5-10.1); CARBON DIOXIDE 17.8 mmol/L (21.0-32.0); CREATININE - SERUM 9.8 mg/dL (0.6-1.3); POTASSIUM - SERUM 5.9 mmol/L (3.5-5.1); VANCOMYCIN - RANDOM 22.9 ug/mL (10.0-20.0)
[2020-03-18 08:00] VITALS: BP 176/60
--- NOTE | 2020-03-18 10:02 | OP ---
PATIENT NAME: JACK VILLASENOR MEDICAL RECORD: [id number] :42 LOCATION:D.M2 D.2109 ADMISSION DATE:03/14/20 SURGEON: RICHARDSON HAWKINS MD DATE OF OPERATION: 03/14/2020 DATE OF SERVICE: 03/14/2020 DIAGNOSES: End-stage renal disease, dependence on hemodialysis, hemorrhage from arteriovenous fistula of right arm, coagulopathy secondary to heparin and TPA and postprocedural hemorrhage from arteriovenous fistula. OPERATION PERFORMED: Ligation of AV fistula (43308) and insertion of a right common femoral tunneled dialysis catheter with ultrasound guidance as well as fluoroscopy. SURGEON: Richardson Hawkins MD ANESTHESIA: General per PROSTHETICS LAB TECHNICIAN. PREOPERATIVE NOTE: Ms. Villasenor is a 79-year-old white female patient with end-stage renal disease, on chronic hemodialysis with a right proximal radial artery to cephalic vein AV fistula. She I believe has dialyzed with this for about 5 years. She presented, I believe on 03/13/2020 with thrombosis of her fistula and on 03/14/[address] [facility] ([facility]) Dr. Anderson attempted mechanical thrombolysis and salvage of her fistula. He did find on contrast injection that she had a 99% stenosis of virtually the entire cephalic arch and she apparently had spontaneous hemorrhage from a site in the cephalic vein in the upper arm and shoulder area, probably lateral to the deltopectoral groove. He was able to control the bleeding at least in part by insertion of a Covera stent and then application of a tourniquet. She was brought to the hospital to the Emergency Room by ambulance. After resuscitation there in the Emergency Room, the tourniquet was released and there has been since no significant increase in the hematoma in her upper arm. She was brought to the operating room at this time with plans to ligate her fistula and insert a tunneled catheter. DESCRIPTION OF PROCEDURE: Under general anesthesia in supine position, the patient was prepped and draped in sterile manner. I made a transverse incision in the forearm, about midway between her original surgical scar in the antecubital space. I made an incision and exposed the fistula and encircled it twice with 2-0 silk ties to ligate it. This left a pulsatile short segment of fistula proximal to the arterial anastomosis, but I did not have to expose the arterial anastomosis in order to accomplish this. That wound was subsequently irrigated with Ancef/gentamicin solution and infiltrated with 0.25% Marcaine without epinephrine and closed with interrupted inverted 3-0 Vicryl and running 4-0 Prolene. A sterile dressing was applied. Next, the tunneled dialysis catheter present in the right neck on her arrival here, which was in such a terrible malposition was removed by traction and hemostasis obtained with direct pressure. The right femoral area which had been prepped and draped was exposed and the right common femoral vein located with Duplex Ultrasound. That vein was fully compressible of normal caliber with no sonographic abnormalities. Images were retained and hard on paper and placed in the patient's record. A small incision was made beneath the groin crease and through that a micropuncture needle and guidewire were inserted into the common OPERATIVE REPORT [id number] JACK VILLASENOR femoral vein under real-time ultrasound imaging. The wire catheter exchange was made and a longer wire inserted into the vena cava under fluoroscopy. Serial dilators were passed and lastly a 35 cm HemoSplit was inserted first through a small incision, a bit distal on the thigh through a subcutaneous tunnel and then through the peel-away sheath. The catheter required just a little manipulation to get into the upper IVC. The peel-away sheath was removed. Both lumens were aspirated and free return of blood confirmed. They were then flushed with saline and heparin-locked, clamped and capped. The catheter was sutured to the skin near the entry site with 2-0 Prolene. The femoral incision closed with interrupted inverted 3-0 Vicryl and Dermabond glue and dressed with Maxorb Ag, Tegaderm, and Cavilon skin prep. A chlorhexidine BioPatch was placed on the catheter at the exit site or entry site and then a standard CVL dressing with Cavilon skin prep. The patient was at this point then awakened and taken to the recovery room in stable condition. The patient had received 2 units of O negative blood in the Emergency Room before coming to surgery and no further transfusions of blood or blood products were given intraoperatively. The patient will be transfused as needed after laboratories values are checked again in recovery. Blood loss during the procedure today was quite trivial. TRANSINT:[id number] Voice Confirmation ID: [id number] DOCUMENT ID: [id number] RICHARDSON HAWKINS MD at 1002 CC: TEE ANDERSON MD and JEANNINE ALCOCER [id number] DICTATION DATE: 03/16/20 1513 CLINIQUE COUNTER MANAGER: 03/17/20 0036 ADM IN [facility] [address] [id number]
--- NOTE | 2020-03-18 11:53 | NUR ---
Dialysis Coordinator: JOVANI Castillo Dialysis TTS @ 6am. Plans to return to chronic unit at discharge. RIGOBERTO NEWMAN.
[2020-03-18 15:00] VITALS: BP 179/72
--- NOTE | 2020-03-18 18:00 | NUR ---
DR HAWKINS CALLED AT APPROX. 1640 AND INFORMED OF PATIENTS INCREASING TEMPERATURE, UNCONTROLLED PAIN AND COMPLAINTS OF FEELING LIKE HER RIGHT ARM WAS GOING TO BURST OPEN. ORDERS RECEIVED TO ELEVATE ARM ON 2-3 PILLOWS, TREAT TEMP WITH TYLENOL AND 1 TIME ORDER FOR BUPRENEX. WILL FOLLOW THROUGH AND CONTINUE TO MONITOR. AT THIS TIME PAIN HAS DECREASED FROM A 10 TO A 6 ON A 1-10 SCALE.
--- NOTE | 2020-03-18 18:10 | NUR ---
WHILE IN ROOM WITH PATIENT SHE STATED IT FELT LIKE BLOOD WAS DRIPPING DOWN HER LEG, UPON LOOKING AT RIGHT GROIN HEMASPLIT SITE THERE WAS BLEEDING UNDER THE DRESSING AND RUNNING DOWN THE LEG, PRESSURE APPLIED FOR SEVERAL MINUTES AND THEN PRESSURE DRESSING APPLIED.
--- NOTE | 2020-03-18 18:14 | NUR ---
NO BLEEDING NOTED AT RIGHT GROIN SITE.
--- NOTE | 2020-03-18 19:04 | NUR ---
REPORT RECEIVED AND ROUNDING COMPLETE. PATIENT LAYING IN BED IN LOW FOWLERS, NASAL CANNULA IN PLACE AND O2 AT 2L. PATINET RIGHT ARM IS BRUISED AND SWELLON AND STITCHES IN RIGHT AC. PATIENT STATES SHE IS ALRIGHT RIGHT NOW. PATIENT HAS A RIGHT GROIN HEMASPLIT WITH A PRESSURE DRESSING FROM IT BLEEDING TODAY. LEFT FOREARM PIV THAT IS SALINE LOCKED, PATIENT SHOWS NO S/SX OF DISTRESS AT THIS TIME. CALL LIGHT WITHIN REACH AND BED IN LOWEST LOCKED POSITION.
[2020-03-18 20:54] VITALS: BP 146/48
--- NOTE | 2020-03-18 21:20 | NUR ---
CALLED DR. HAWKINS AND MADE HIM AWARE OF PATIENT BLEEDING FROM HEMASPLIT IN THE RIGHT GROIN. HE GAVE NEW ORDERS TO BE PUT INTO EFFECT NOW, WILL FOLLOW ORDERS. MD STATES HE WILL SEE PATIENT FIRST THING IN MORNING AND TO CALL FOR FURTHER CONCERNS.
--- NOTE | 2020-03-18 21:30 | NUR ---
CHECKED AND RE-ENFORCED HEMASPLIT DRESSING.
--- NOTE | 2020-03-18 23:45 | NUR ---
CHECKED HEMASPLIT NO FURTHER BLEEDING NOTED. PATIENT EYES CLOSED BREATHING EVEN AND UNLABORED.
--- NOTE | 2020-03-19 01:30 | NUR ---
CHECKED HEMASPLIT, NO NEW BLEEDING NOTED.
--- NOTE | 2020-03-19 04:00 | NUR ---
CHECKED HEMASPLIT, SCANT AMOUT OF BLOOD NOTED COMING OUT AT BOTTOM OF DRESSING, CLEANED AND THEN ADDED MORE RE-ENFORCEMNET TO DRESSING. PATIENT REAJUSTED. NO DISTRESS, CALL LIGHT WITHIN REACH AND BED IN LOWEST LOCKED POSITION.
[2020-03-19 04:46] VITALS: BP 177/57
[2020-03-19 05:13] LABS: BASOPHILS 0.5 % (0-2); HEMATOCRIT 24.7 % (36.0-48.0); IMMATURE GRANULOCYTES 1.3 % (0-5); LYMPHOCYTES 16.4 % (15-50); MCH 29.9 pg (26.0-34.0); MCHC 32.4 g/dL (31.0-37.0); MCV 92.2 fL (80.0-100.0); MEAN PLATELET VOLUME 9.7 fL (7.4-10.4); MONOCYTES 12.6 % (2-11); NEUTROPHILS 61.2 % (40-80); PLATELET COUNT 172 10x3/uL (130-400); RBC 2.68 10x6/uL (4.00-5.40); RDW 15.7 % (11.5-14.5); WBC 7.6 10x3/uL (4.8-10.8)
[2020-03-19 05:29] LABS: ANION GAP 17.2 mmol/L (8-16); CALCIUM 8.4 mg/dL (8.5-10.1); CARBON DIOXIDE 22.2 mmol/L (21.0-32.0); CREATININE - SERUM 7.6 mg/dL (0.6-1.3); POTASSIUM - SERUM 5.4 mmol/L (3.5-5.1); VANCOMYCIN - RANDOM 21.6 ug/mL (10.0-20.0)
--- NOTE | 2020-03-19 10:30 | NUR ---
PT IN DIALYSIS.
--- NOTE | 2020-03-19 12:41 | NUR ---
PT ALERT X 4. BREATH SOUNDS CLEAR BILAT. HEMESPLIT TO RIGHT GROIN DRESSING CDI. PT REPORTING ITCHING, CALLED AND LEFT MESSAGE FOR DR. HAWKINS. BED LOW, CALL LIGHT IN REACH. NO OTHER NEEDS AT THIS TIME.
[2020-03-19 15:27] VITALS: BP 195/69
--- NOTE | 2020-03-19 19:48 | NUR ---
REPORT RECEIVED AND ROUNDING COMPLETE. PATIENT LAYING IN BED WITH PILLOWS SUPPORTING HER RIGHT ARM. SANDBAG IN PLACE IN RIGHT GROIN HEMASPLIT BECAUSE OF SLIGHT BLEEDING NOTED ON DAY SHIFT. LEFT HAND PIV SALINE LOCKED AT THIS TIME. PATIENT STATES SHE IS READY FOR THIS TO BE OVER AND GO HOME ALREADY. NO NEEDS AT THIS TIME, CALL LIGHT WITHIN REACH AND BED IN LOWEST LOCKED POSITION.
--- NOTE | 2020-03-19 20:35 | NUR ---
CALLED AND TALKED WITH Ruchi HAWKINS ABOUT PATIENT RIGHT GROIN HEMASPLIT AND BLEEDING, GAVE NEW MED ORDER AND ALSO ASKED FOR THE REMOVAL OF ALL PRESSURE DRESSINGS AND CLEAN DOWN TO SKIN AND REDRESS. WILL FOLOOW OUT ORDERS.
[2020-03-19 20:47] VITALS: BP 152/55
--- NOTE | 2020-03-19 22:45 | NUR ---
REMOVED ALL PRESSURE DRESSING TO THE RIGHT HEMASPLIT, CLEANED THE HEMASPLIT THROUGHLY AND REMOVED ALL CLOTS, USED STERILE DRESSING CHANGE PROTOCOL. PATIENT TOLERATED WELL. NO ACTIVE BLEEDING NOTED, APPLIED SAND BAG FOR 15MIN DIRECTED BY DR. HAWKINS. WILL RECHECK.
--- NOTE | 2020-03-19 23:15 | NUR ---
REMOVED SAND BAG, NO ACTIVE BLEEDING, DRESSING C/D/I. PATIENT RESTLY COMFORTABLY, NO NEEDS, CALL LIGHT WITHIN REACH AND BED IN LOWEST LOCKED POSITION.
[2020-03-20 04:30] VITALS: BP 173/66
[2020-03-20 06:03] LABS: BASOPHILS 0.6 % (0-2); EOSINOPHILS 7.4 % (0-7); HEMATOCRIT 23.6 % (36.0-48.0); HEMOGLOBIN 7.7 g/dL (12-16); IMMATURE GRANULOCYTES 1.5 % (0-5); LYMPHOCYTES 19.3 % (15-50); MCH 30.3 pg (26.0-34.0); MCHC 32.6 g/dL (31.0-37.0); MCV 92.9 fL (80.0-100.0); MEAN PLATELET VOLUME 9.3 fL (7.4-10.4); MONOCYTES 13.5 % (2-11); NEUTROPHILS 57.7 % (40-80); RBC 2.54 10x6/uL (4.00-5.40); RDW 15.4 % (11.5-14.5); WBC 6.7 10x3/uL (4.8-10.8)
[2020-03-20 06:19] LABS: PLATELET COUNT 216 10x3/uL (130-400)
[2020-03-20 06:34] LABS: ANION GAP 15.2 mmol/L (8-16); CALCIUM 8.7 mg/dL (8.5-10.1); CARBON DIOXIDE 24.3 mmol/L (21.0-32.0); CREATININE - SERUM 6.8 mg/dL (0.6-1.3)
[2020-03-20 06:36] LABS: POTASSIUM - SERUM 4.5 mmol/L (3.5-5.1)
--- NOTE | 2020-03-20 08:27 | NUR ---
AM MEDS GIVEN AT THIS TIME. PT A/O X4, RESP EVEN AND NONLABORED ON RA. LT FA IV SL. PT DENIES ANY NEEDS AT THIS TIME .CALL LIGHT IN REACH, NAD NOTED, WILL CONTINUE TO MONITOR.
[2020-03-20 09:17] VITALS: BP 147/51
[2020-03-20 12:08] VITALS: BP 147/63
--- NOTE | 2020-03-20 13:30 | NUR ---
UNIT OF PRBCS STARTED INFUSING AT THIS TIME. VITAL SIGNS STABLE, WILL MONITOR PT FOR THE FIST 15MIN.
--- NOTE | 2020-03-20 13:42 | NUR ---
PT TOLERATING BLOOD INFUSING WELL. VITLA SIGNS STABLE. PT DENIES ANY NEEDS AT THIS TIME. CALL LIGHT IN REACH, WILL CONTINUE TO MONITOR.
[2020-03-20 17:11] VITALS: BP 141/60
--- NOTE | 2020-03-20 19:47 | NUR ---
RECIEVED UP IN BED WITH EYES OPEN AND TV ON. ALERT AND ORIETNED X4. UP AD JEF TO B/R. HEMOSPLIT TO RT GROIN. STITCHES TO RT FOREARM. O2@ 2 LITERS PER N/C. DENIES ANY NEEDS.
[2020-03-20 20:30] VITALS: BP 182/69
[2020-03-21 00:30] VITALS: BP 166/57
[2020-03-21 04:36] VITALS: BP 161/57
[2020-03-21 08:16] VITALS: BP 148/70
--- NOTE | 2020-03-21 09:26 | NUR ---
Spoke to Pharmacy to get more Requip 0.25 mg for pt.
[2020-03-21 12:48] VITALS: BP 162/60
[2020-03-21 14:58] LABS: BASOPHILS 0.6 % (0-2); EOSINOPHILS 7.7 % (0-7); LYMPHOCYTES 19.1 % (15-50); MCH 30.7 pg (26.0-34.0); MCHC 32.5 g/dL (31.0-37.0); MCV 94.2 fL (80.0-100.0); MEAN PLATELET VOLUME 9.5 fL (7.4-10.4); MONOCYTES 9.3 % (2-11); NEUTROPHILS 62.3 % (40-80); PLATELET COUNT 217 10x3/uL (130-400); RDW 15.4 % (11.5-14.5); WBC 8.2 10x3/uL (4.8-10.8)
[2020-03-21 15:19] LABS: HEMATOCRIT 29.5 % (36.0-48.0); HEMOGLOBIN 9.6 g/dL (12-16); RBC 3.13 10x6/uL (4.00-5.40)
[2020-03-21 15:31] LABS: ANION GAP 20.4 mmol/L (8-16); CALCIUM 8.6 mg/dL (8.5-10.1); CARBON DIOXIDE 22.4 mmol/L (21.0-32.0)
[2020-03-21 15:35] LABS: CREATININE - SERUM 8.8 mg/dL (0.6-1.3); POTASSIUM - SERUM 5.8 mmol/L (3.5-5.1)
[2020-03-21 17:01] VITALS: BP 178/66
--- NOTE | 2020-03-21 19:00 | NUR ---
EVENING ROUNDS COMPLETE. PT SITTING UP IN BED. NO SIGNS OF DISTRESS. PT REQUEST FOR NORCO WITH EVENING MEDS, TO BE GIVEN. NO OTHER NEEDS VOICED AT THIS TIME. AAOX4. CL IN REACH, BED IN LOWEST POSITION.
[2020-03-21 20:21] VITALS: BP 171/66
[2020-03-22 00:33] VITALS: BP 154/55
[2020-03-22 05:48] VITALS: BP 166/60
[2020-03-22 05:57] LABS: BASOPHILS 0.4 % (0-2); EOSINOPHILS 9.2 % (0-7); HEMATOCRIT 30.1 % (36.0-48.0); HEMOGLOBIN 9.7 g/dL (12-16); IMMATURE GRANULOCYTES 0.9 % (0-5); LYMPHOCYTES 17.5 % (15-50); MCH 30.4 pg (26.0-34.0); MCHC 32.2 g/dL (31.0-37.0); MCV 94.4 fL (80.0-100.0); MEAN PLATELET VOLUME 9.4 fL (7.4-10.4); MONOCYTES 11.6 % (2-11); NEUTROPHILS 60.4 % (40-80); PLATELET COUNT 241 10x3/uL (130-400); RBC 3.19 10x6/uL (4.00-5.40); RDW 15.4 % (11.5-14.5)
[2020-03-22 08:00] VITALS: BP 175/66
[2020-03-22 09:02] LABS: CALCIUM 9.1 mg/dL (8.5-10.1); CARBON DIOXIDE 19.1 mmol/L (21.0-32.0); CREATININE - SERUM 9.7 mg/dL (0.6-1.3)
[2020-03-22 09:04] LABS: POTASSIUM - SERUM 6.1 mmol/L (3.5-5.1)
--- NOTE | 2020-03-22 11:12 | NUR ---
Nutrition Follow-up: Pt reports that she is "just not hungry". Declines Nepro. HD today. Diet: Renal ADA Wt: 149# (03/22); 135# (03/14 - stated) Last BM: 03/21 Labs noted: Na 131, K+ 6.1, Glu 58 Meds noted: Renagel -Encourage PO intake and honor food preferences within diet restrictions. -Pt may benefit from appetite stimulant. -Monitor wt; noted daily wts ordered. -RD following.
[2020-03-22 15:00] VITALS: BP 190/90
--- NOTE | 2020-03-22 16:28 | NUR ---
OT NOTE:PT COMPLETED SUPINE TO SIT WITH CGA. PT COMPLETED ADL MOB WITH RW REQUIRED CGA/MIN A. PT COMPLETED HAIR GROOMING WITH SETUP. [phone] THANK YOU,THANG HOGAN
--- NOTE | 2020-03-22 19:30 | NUR ---
PT RESTING IN BED A/O X4. RR EVEN AND UNLABORED. RIGHT ARM ELEVATED ON PILLOW. PT ATATES SHE IS HAVING PAIN AND REQUESTED PRN PAIN MEDICATION. NO S/S OR SYMPTOMS OF DISTRESS VITALS ARE STABLE. BED LOW SIDE RAILS UP X2 CALL LIGHT WITHIN REACH. WILL CONTINUE TO MONITOR.
[2020-03-22 20:50] VITALS: BP 153/102
[2020-03-23 00:39] VITALS: BP 137/69
--- NOTE | 2020-03-23 03:16 | NUR ---
I have reviewed this patient and I concur with the Shift Assessment completed by the Licensed Practical Nurse today this shift.
[2020-03-23 05:13] VITALS: BP 129/67
[2020-03-23 06:40] LABS: BASOPHILS 0.2 % (0-2); EOSINOPHILS 4.9 % (0-7); HEMATOCRIT 28.9 % (36.0-48.0); HEMOGLOBIN 9.4 g/dL (12-16); IMMATURE GRANULOCYTES 0.8 % (0-5); LYMPHOCYTES 17.9 % (15-50); MCH 30.3 pg (26.0-34.0); MCHC 32.5 g/dL (31.0-37.0); MCV 93.2 fL (80.0-100.0); MEAN PLATELET VOLUME 9.6 fL (7.4-10.4); MONOCYTES 9.7 % (2-11); NEUTROPHILS 66.5 % (40-80); PLATELET COUNT 259 10x3/uL (130-400); RDW 15.3 % (11.5-14.5); WBC 8.6 10x3/uL (4.8-10.8)
[2020-03-23 06:44] LABS: ANION GAP 18.8 mmol/L (8-16); CARBON DIOXIDE 23.4 mmol/L (21.0-32.0); CREATININE - SERUM 8.4 mg/dL (0.6-1.3); PHOSPHOROUS 6.7 mg/dL (2.5-4.9); POTASSIUM - SERUM 5.2 mmol/L (3.5-5.1)
[2020-03-23 07:02] LABS: INR 1.09 (0.85-1.17); PROTIME 14.1 SECONDS (11.6-15.0)
--- NOTE | 2020-03-23 07:10 | NUR ---
DID WALKING ROUNDS PT RESTING IN BED TALKING ON PHONE, PT DENIES PAIN OR NEEDS, CALL LIGHT IN REACH, WILL CONTINUE TO MONITOR
--- NOTE | 2020-03-23 08:21 | NUR ---
GAVE PT NORCO 7.5MG FOR PAIN IN SHOULDER, RATES PAIN 8/10
[2020-03-23] MEDS ORDERED: HYDROCODON-ACE1 EAC2 PO (08:51)
[2020-03-23 08:59] VITALS: BP 148/65
--- NOTE | 2020-03-23 09:05 | NUR ---
REASSESSED PT PAIN, RATES PAIN 3/10 IN SHOULDER, NO OTHER NEEDS VOICED, CALL LIGHT IN REACH, WILL CONTINUE TO MONITOR
--- NOTE | 2020-03-23 10:26 | MORECARE ---
CASE MANAGEMENT DISCHARGE SUMMARY PATIENT: JACK HELM UNIT: [id number] ADM DATE: 03/14/20 AGE: 79 : 41 SEX: F ROOM/BED: D.2105 AUTHOR: BYRONDOC PHYSICIAN: REFERRING PHYSICIAN: RICHARDSON HAWKINS MD DATE OF SERVICE: 03/23/20 Discharge Plan Patient Name: JACK HELM Facility: [facility]:[place] : 1940 Planned Disposition: Home Health Service Anticipated Discharge Date: 03/23/20 Discharge Date: Expected LOS: 9 Initial Reviewer: [email or web address] Initial Review Date: 03/14/2020 Generated: 03/23/20 11:25 am Comments DCP- Discharge Planning Updated by [email or web address]: Deborah Eric on 03/23/20 9:[address] CM met with patient to discuss initial discharge planning. Patient is in agreement to proceed with the assessment. Patient reports that she lives at [facility] in [place]. Patient is alert/oriented. Stairs/steps: 0. PCP: [facility]. Pharmacy: [facility]. Patient states she has been able to obtain all of her prescribed medications. HHS: [place] [facility] GARRETT #[phone]. DME: None. Patient gives permission to speak with her son, Petros Fernandez [phone]). 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 The facility assist with cooking, laundry, cleaning X1 each week. CM discussed the availability of HH, Rehab, SNF, OP Therapy, DME services. Patient denies the need for additional services at this time and feels safe returning to previous environment. Patient denies hospitalization within the past 30 days. 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 Transportation at time of discharge: Petros Fernandez (son). CM will set up the [facility] with Anneliese [phone], opt 1. DCPIA - Discharge Planning Initial Assessment Updated by [email or web address]: Deborah Eric on 03/23/20 10:23 am * Is the patient Alert and Oriented? Yes * How many steps to enter\exit or inside your home? * PCP Hussain Ann * Pharmacy [facility] * Preadmission Environment Assisted Living * [facility] * ADLs Independent * Equipment None * Other Equipment NA * List name and contact numbers for known caregivers / representatives who currently or will assist patient after discharge: Petros Fernandez (son) [phone] * Verbal permission to speak to the caregivers and representatives has been obtained from the patient. Yes * Community resources currently utilized Home Health * Please name any agencies selected above. [facility] * Additional services required to return to the preadmission environment? Yes * Can the patient safely return to the preadmission environment? Yes * Has this patient been hospitalized within the prior 30 days at any hospital? No Patient Name: JACK HELM Page [id number] at 1026 All edits/amendments must be made on the electronic document DICTATION DATE: 03/23/20 1025 PEOPLESOFT HR DEVELOPER: ROEL 03/23/20 1025 RPT#: [id number] DC DATE: STATUS: ADM IN [facility] [address] [place] [address] END OF REPORT
--- NOTE | 2020-03-23 10:33 | MORECARE ---
CASE MANAGEMENT DISCHARGE SUMMARY PATIENT: JACK HELM UNIT: [id number] ADM DATE: 03/14/20 AGE: 79 : 41 SEX: F ROOM/BED: D.7903 AUTHOR: BYRON,DOC PHYSICIAN: REFERRING PHYSICIAN: RICHARDSON HAWKINS MD DATE OF SERVICE: 03/23/20 Discharge Plan Patient Name: JACK HELM [facility] [facility] 1940 Planned Disposition: Home Health Service Anticipated Discharge Date: 03/23/20 Discharge Date: Expected LOS: 9 Initial Reviewer: [email or web address] Initial Review Date: 03/14/2020 Generated: 03/23/20 11:33 am Comments DCP- Discharge Planning Updated by [email or web address]: Deborah Eric on 03/23/20 9:[address] [place] Plans: [facility] ([phone], opt 1, [place] [phone]. Faxed appropriate information to [facility]. Patient's son will drive her home upon DC. CM met with patient to discuss initial discharge planning. Patient is in agreement to proceed with the assessment. Patient reports that she lives at [facility], in [place]. Patient is alert/oriented. Stairs/steps: 0. PCP: Dr. Hussain Maldonado [place]. Pharmacy: [facility]. Patient states she has been able to obtain all of her prescribed medications. [facility] #[phone]. DME: None. Patient gives permission to speak with her son, Petros Fernandez [phone]). Patient is Independent with all ADL's, medication management RN PARALEGAL. The facility assist with cooking, laundry, cleaning X1 each week. CM discussed the availability of HH, Rehab, SNF, OP Therapy, DME services. Patient denies the need for additional services at this time and feels safe returning to previous environment. Patient denies hospitalization within the past 30 days. Patient denies the use of community resources RN PARALEGAL. Transportation at time of discharge: Petros Fernandez (son). CM will set up the [facility] with Anneliese [phone], opt 1. DCPIA - Discharge Planning Initial Assessment Updated by [email or web address]: Deborah Eric on 03/23/20 10:23 am * Is the patient Alert and Oriented? Yes * How many steps to enter\exit or inside your home? * PCP Hussain Ann * Pharmacy [facility] * Preadmission Environment Assisted Living * Facility Name [facility] * ADLs Independent * Equipment None * Other Equipment NA * List name and contact numbers for known caregivers / representatives who currently or will assist patient after discharge: Petros Fernandez (son) [phone] * Verbal permission to speak to the caregivers and representatives has been obtained from the patient. Yes * Community resources currently utilized Home Health * Please name any agencies selected above. [facility] * Additional services required to return to the preadmission environment? Yes * Can the patient safely return to the preadmission environment? Yes * Has this patient been hospitalized within the prior 30 days at any hospital? No External Providers External Provider: OTHER-OTHER Next Contact Date: Service Request Date: Service Type: Resolution: Reviewer: Comments: Last DP export: 03/23/20 9:26 a Patient Name: JACK HELM Page [phone] at 1033 All edits/amendments must be made on the electronic document DICTATION DATE: 03/23/20 1033 DIRECTOR OF SALES AND MARKETING: ROEL 03/23/20 1033 RPT#: [id number] DC DATE: STATUS: ADM IN [facility] [address] [place] [address] END OF REPORT
[2020-03-23 13:21] VITALS: BP 141/69
--- NOTE | 2020-03-23 13:54 | MORECARE ---
CASE MANAGEMENT DISCHARGE SUMMARY PATIENT: JACK HELM UNIT: [id number] ADM DATE: 03/14/20 AGE: 79 : 41 SEX: F ROOM/BED: D.4012 AUTHOR: BYRON,DOC PHYSICIAN: REFERRING PHYSICIAN: RICHARDSON HAWKINS MD DATE OF SERVICE: 03/23/20 Discharge Plan Patient Name: JACK HELM [facility] [facility] 1940 Planned Disposition: Home Health Service Anticipated Discharge Date: 03/23/20 Discharge Date: Expected LOS: 9 Initial Reviewer: [email or web address] Initial Review Date: 03/14/2020 Generated: 03/23/20 2:54 pm Comments DCP- Discharge Planning Updated by [email or web address]: Deborah Eric on 03/23/20 9:[address] DC Plans: [facility] ([phone], opt 1, [place] [phone]. Faxed appropriate information to [facility]. Patient's son will drive her home upon DC. CM met with patient to discuss initial discharge planning. Patient is in agreement to proceed with the assessment. Patient reports that she lives at The [facility], in [place]. Patient is alert/oriented. Stairs/steps: 0. PCP: Dr. Hussain Maldonado [place]. Pharmacy: [facility]. Patient states she has been able to obtain all of her prescribed medications. [facility] #[phone]. DME: None. Patient gives permission to speak with her son, Petros Fernandez [phone]). 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 The facility assist with cooking, laundry, cleaning X1 each week. CM discussed the availability of HH, Rehab, SNF, OP Therapy, DME services. Patient denies the need for additional services at this time and feels safe returning to previous environment. Patient denies hospitalization within the past 30 days. Patient denies the use of community resources UNDERWATER TRAPPER. Transportation at time of discharge: Petros Fernandez (son). CM will set up the [facility] with Anneliese [phone], opt 1. DCPIA - Discharge Planning Initial Assessment Updated by [email or web address]: Deborah Eric on 03/23/20 10:23 am * Is the patient Alert and Oriented? Yes * How many steps to enter\exit or inside your home? * PCP Hussain Ann * Pharmacy [facility] * Preadmission Environment Assisted Living * Facility [facility] * ADLs Independent * Equipment None * Other Equipment NA * List name and contact numbers for known caregivers / representatives who currently or will assist patient after discharge: Petros Fernandez (son) [phone] * Verbal permission to speak to the caregivers and representatives has been obtained from the patient. Yes * Community resources currently utilized Home Health * Please name any agencies selected above. [facility] * Additional services required to return to the preadmission environment? Yes * Can the patient safely return to the preadmission environment? Yes * Has this patient been hospitalized within the prior 30 days at any hospital? No Last DP export: 03/23/20 9:33 a Patient Name: JACK HELM Page 68735 at 1354 All edits/amendments must be made on the electronic document DICTATION DATE: 03/23/20 1354 CAR INSPECTOR: ROEL 03/23/20 1354 RPT#: [id number] DC DATE: STATUS: ADM IN [facility] [address] [place] [address] END OF REPORT
--- NOTE | 2020-03-23 14:28 | MORECARE ---
CASE MANAGEMENT DISCHARGE SUMMARY PATIENT: JACK HELM UNIT: [id number] ADM DATE: 03/14/20 AGE: 79 : 41 SEX: F ROOM/BED: D.2101 AUTHOR: BYRON,DOC PHYSICIAN: REFERRING PHYSICIAN: RICHARDSON HAWKINS MD DATE OF SERVICE: 03/23/20 Discharge Plan Patient Name: JACK HELM Facility: [facility]:[place] : 1940 Planned Disposition: Home Health Service Anticipated Discharge Date: 03/23/20 Discharge Date: Expected LOS: 9 Initial Reviewer: [email or web address] Initial Review Date: 03/14/2020 Generated: 03/23/20 3:27 pm Comments DCP- Discharge Planning Updated by [email or web address]: Deborah Eric on 03/23/20 1:[address] Meagan, with [facility] called back and states the seat van can citrus picker the patient 03/24 morning, if the family is unable to drive the patient home. Meagan is attempting to contact the family for transportation today. ITALO contacted Meagan ([phone]), with [facility] [place] regarding transportation and the need for portable and home O2. Meagan recommended [employer] [facility] [employer], as this the DME company that the facility is contracted with. Per Kristina, with [facility], she states she is arranging transportation for the patient once she is cleared by nephrology. Per Pratik with [facility], he is trying to arrange delivery of portable O2 with [facility], here in [place]. ITALO notified Meagan, with [facility], that if we are unable to arrange portable O2 with [facility], then I will use a local DME. Multiple calls with [facility], with Pratik ([phone]) [facility], regarding portable and home O2. The DME does not routinely deliver to [place] and is attempting to arrange delivery with another company in . DC Plans: Home with [facility] ([phone], opt 1, [place] [phone]). Faxed appropriate information to [place]. Patient's brother will drive her home upon DC. CM met with patient to discuss initial discharge planning. Patient is in agreement to proceed with the assessment. Patient reports that she lives at [facility], in [place]. Patient is alert/oriented. Stairs/steps: 0. PCP: Mickey Stark. Pharmacy: [facility]. Patient states she has been able to obtain all of her prescribed medications. [facility][phone]. DME: None. Patient gives permission to speak with her brother, Petros Fernandez ([phone]). 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 The facility assist with cooking, laundry, cleaning X1 each week. CM discussed the availability of HH, Rehab, SNF, OP Therapy, DME services. Patient denies the need for additional services at this time and feels safe returning to previous environment. Patient denies hospitalization within the past 30 days. Patient denies the use of community resources METAL OR WOOD BLOCKER. Transportation at time of discharge: Petros Fernandez (son). CM will set up the [facility] with Anneliese [phone], opt 1. DCPIA - Discharge Planning Initial Assessment Updated by [email or web address]: Deborah Eric on 03/23/20 10:23 am * Is the patient Alert and Oriented? Yes * How many steps to enter\exit or inside your home? * PCP Hussain Ann * Pharmacy [facility] * Preadmission Environment Assisted Living * Facility Name [facility] * ADLs Independent * Equipment None * Other Equipment NA * List name and contact numbers for known caregivers / representatives who currently or will assist patient after discharge: Petros Fernandez (son) [phone] * Verbal permission to speak to the caregivers and representatives has been obtained from the patient. Yes * Community resources currently utilized Home Health * Please name any agencies selected above. [facility] * Additional services required to return to the preadmission environment? Yes * Can the patient safely return to the preadmission environment? Yes * Has this patient been hospitalized within the prior 30 days at any hospital? No Last DP export: 03/23/20 12:54 p Patient Name: JACK HELM Page 26850 at 1428 All edits/amendments must be made on the electronic document DICTATION DATE: 03/23/201426 SOLAR PROJECT MANAGER: ROEL 03/23/201426 RPT#: [id number] DC DATE: STATUS: ADM IN [facility] [address] [place] [address] END OF REPORT
--- NOTE | 2020-03-23 15:02 | NUR ---
WRITTEN SCRIPT FOR NORCO 7.5MG GIVEN TO PATIENT AND COPY TO CHART. #60 WITH NO REFILLS.
--- NOTE | 2020-03-23 17:38 | MORECARE ---
CASE MANAGEMENT DISCHARGE SUMMARY PATIENT: JACK HELM UNIT: [id number] ADM DATE: 03/14/20 AGE: 79 : 41 SEX: F ROOM/BED: D.8651 AUTHOR: BYRON,DOC PHYSICIAN: REFERRING PHYSICIAN: RICHARDSON HAWKINS MD DATE OF SERVICE: 03/23/20 Discharge Plan Patient Name: JACK HELM [facility] [facility] 1940 Planned Disposition: Home Health Service Anticipated Discharge Date: 03/23/20 Discharge Date: Expected LOS: 9 Initial Reviewer: [email or web address] Initial Review Date: 03/14/2020 Generated: 03/23/20 6:37 pm Comments DCP- Discharge Planning Updated by [email or web address]: Deborah Eric on 03/23/20 4:[address] ITALO contacted Radha with [facility] to arrange transportation for tomorrow. The van will pick patient up 03/24 @1200 and transport to [facility]. Patient's S tank (portable) has been delivered to the patient's room and the home concentrator will be delivered prior to the patient's return home. DCP- Discharge Planning Updated by [email or web address]: Deborah Eric on 03/23/20 1:26 pm JUNO Rhodes, with [facility] called back and states the seat van can bead picker the patient 03/24 morning, if the family is unable to drive the patient home. Meagan is attempting to contact the family for transportation today. ITALO contacted Meagan ([phone]), with [facility] regarding transportation and the need for portable and home O2. Meagan recommended [employer] [facility] [employer], as this the DME company that the facility is contracted with. Per Kristina, with [facility], she states she is arranging transportation for the patient once she is cleared by nephrology. Per Pratik with [facility], he is trying to arrange delivery of portable O2 with [facility], here in [place]. ITALO notified Meagan, with [facility], that if we are unable to arrange portable O2 with [facility], then I will use a local DME. Multiple calls with [facility] [facility] [employer], with Pratik ([phone]) [facility], regarding portable and home O2. The DME does not routinely deliver to [place] and is attempting to arrange delivery with another company in . DC Plans: Home with [facility] ([phone], opt 1, [place] [phone]). Faxed appropriate information to [facility]. Patient's brother will drive her home upon DC. CM met with patient to discuss initial discharge planning. Patient is in agreement to proceed with the assessment. Patient reports that she lives at [facility], in [place]. Patient is alert/oriented. Stairs/steps: 0. PCP: [facility] Stark. Pharmacy: [facility]. Patient states she has been able to obtain all of her prescribed medications. HHS: [facility] #[phone]. DME: None. Patient gives permission to speak with her brother, Petros Fernandez ([phone]). 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 The facility assist with cooking, laundry, cleaning X1 each week. CM discussed the availability of HH, Rehab, SNF, OP Therapy, DME services. Patient denies the need for additional services at this time and feels safe returning to previous environment. Patient denies hospitalization within the past 30 days. 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 Transportation at time of discharge: Petros Fernandez (son). CM will set up the [facility] with Anneliese [phone], opt 1. DCPIA - Discharge Planning Initial Assessment Updated by [email or web address]: Deborah Eric on 03/23/20 10:23 am * Is the patient Alert and Oriented? Yes * How many steps to enter\exit or inside your home? * PCP Hussain Ann * Pharmacy [facility] * Preadmission Environment Assisted Living * [facility] [place] * ADLs Independent * Equipment None * Other Equipment NA * List name and contact numbers for known caregivers / representatives who currently or will assist patient after discharge: Petros Fernandez (son) [phone] * Verbal permission to speak to the caregivers and representatives has been obtained from the patient. Yes * Community resources currently utilized Home Health * Please name any agencies selected above. [facility] * Additional services required to return to the preadmission environment? Yes * Can the patient safely return to the preadmission environment? Yes * Has this patient been hospitalized within the prior 30 days at any hospital? No Last DP export: 03/23/20 1:28 p Patient Name: JACK HELM Page 10518 at 1738 All edits/amendments must be made on the electronic document DICTATION DATE: 03/23/201736 FILM ARCHIVIST: DM 03/23/201736 RPT#: [id number] DC DATE: STATUS: ADM IN [facility] [address] [place] [address] END OF REPORT
--- NOTE | 2020-03-23 18:25 | NUR ---
PT STARTED RUNNING V TACH ON MONITOR WITH YENNY, UPON ENETERING ROOM, PT WAS VERY SCARED AND SAID ROOM WAS SPINNING, FELT LIKE SHE WAS FALLING OUT OF BED, 1832 CALLED AND TALKED WITH JUANITA BAI APN ABOUT PT CONDITION AND HER TEL STRIPS, NEW ORDER FOR 500ML NS BOLUS, 12 LEAD EKG, AND CONSULT CARDIOLOGY 1844 RAPID CALLED DUE TO PT GOING BACK INTO V TACH AT 200, PT IS ALERT AND ORIENTED, VITAL SIGNS STABLE, RAPID TEAM IN ROOM, UNABLE TO OBTAIN AN IV 1911 CALLED JUANITA BAI APN BACK TO INFORM HER THAT WE ARE UNABLE TO GET IV ACCESS, SHE GAVE CONSENT TO USE HEMOSPLIT FOR BLOOD DRAW AND BOLUS AT THIS TIME, MAG ORDERED, PT RESTING IN BED WITHOUT ANY COMPLAINTS AT THIS TIME, 1911
--- NOTE | 2020-03-23 19:30 | NUR ---
PT IN BED, AAO X 3, RESP EVEN AND UNLABORED. NO DISTRESS NOTED, CL IN REACH, SR UP X 2.
--- NOTE | 2020-03-23 19:47 | NUR ---
PT IS RUNNING SR AT 91 WITH INVERTED T WAVE, PT IS RESTING IN BED WITH EYES OPEN , NO NEEDS VOICED AT THIS TIME
[2020-03-23 20:00] VITALS: BP 151/68
[2020-03-24] VITALS: BP 139/72
[2020-03-24 04:00] VITALS: BP 126/77
[2020-03-24 06:50] LABS: BASOPHILS 0.4 % (0-2); EOSINOPHILS 1.7 % (0-7); HEMATOCRIT 28.9 % (36.0-48.0); HEMOGLOBIN 9.2 g/dL (12-16); IMMATURE GRANULOCYTES 0.7 % (0-5); LYMPHOCYTES 12.4 % (15-50); MCH 29.9 pg (26.0-34.0); MCHC 31.8 g/dL (31.0-37.0); MCV 93.8 fL (80.0-100.0); MEAN PLATELET VOLUME 9.5 fL (7.4-10.4); MONOCYTES 8.2 % (2-11); NEUTROPHILS 76.6 % (40-80); PLATELET COUNT 259 10x3/uL (130-400); RBC 3.08 10x6/uL (4.00-5.40); RDW 15.3 % (11.5-14.5); WBC 9.9 10x3/uL (4.8-10.8)
[2020-03-24 07:08] LABS: ANION GAP 18.8 mmol/L (8-16); CALCIUM 9.3 mg/dL (8.5-10.1); PHOSPHOROUS 6.2 mg/dL (2.5-4.9); POTASSIUM - SERUM 4.8 mmol/L (3.5-5.1)
[2020-03-24 07:10] LABS: CREATININE - SERUM 6.2 mg/dL (0.6-1.3)
[2020-03-24 08:00] VITALS: BP 143/66
[2020-03-24 08:06] LABS: CHOL - HDL RATIO 2.5 ratio (2.3-4.1); LDL-HDL RATIO 1.3 ratio (1.5-3.5); MAGNESIUM - SERUM 2.2 mg/dL (1.8-2.4)
--- NOTE | 2020-03-24 08:30 | MORECARE ---
CASE MANAGEMENT DISCHARGE SUMMARY PATIENT: JACK HELM UNIT: [id number] ADM DATE: 03/14/20 AGE: 79 : 41 SEX: F ROOM/BED: D.5933 AUTHOR: BYRON,DOC PHYSICIAN: REFERRING PHYSICIAN: RICHARDSON HAWKINS MD DATE OF SERVICE: 03/24/20 Discharge Plan Patient Name: JACK HELM [facility] [facility] 1940 Planned Disposition: Home Health Service Anticipated Discharge Date: 03/23/20 Discharge Date: Expected LOS: 9 Initial Reviewer: [email or web address] Initial Review Date: 03/14/2020 Generated: 03/24/20 9:30 am Comments DCP- Discharge Planning Updated by [email or web address]: Deborah Eric on 03/23/20 4:[address] ITALO contacted Radha with [facility] to arrange transportation for tomorrow. The van will pick patient up 03/24 @1200 and transport to [facility]. Patient's S tank (portable) has been delivered to the patient's room and the home concentrator will be delivered prior to the patient's return home. DCP- Discharge Planning Updated by [email or web address]: Deborah Eric on 03/23/20 1:[address] Meagan, with [facility] called back and states the seat van can picker tender helper the patient 03/24 morning, if the family is unable to drive the patient home. Meagan is attempting to contact the family for transportation today. ITALO contacted Meagan ([phone]), with [facility] regarding transportation and the need for portable and home O2. Meagan recommended [employer] [facility] [employer], as this the DME company that the facility is contracted with. Per Kristina, with [facility], she states she is arranging transportation for the patient once she is cleared by nephrology. Per Pratik with [employer] [facility], he is trying to arrange delivery of portable O2 with [facility], here in [place]. ITALO notified Meagan, with [facility], that if we are unable to arrange portable O2 with [facility], then I will use a local DME. Multiple calls with [employer] [facility] [employer] [facility], with Pratik ([phone]) Mickey, regarding portable and home O2. The DME does not routinely deliver to [place] and is attempting to arrange delivery with another company in . DC Plans: Home with Freda Toscano ([phone], opt 1, [place] [phone]). Faxed appropriate information to Anneliese. Patient's brother will drive her home upon DC. CM met with patient to discuss initial discharge planning. Patient is in agreement to proceed with the assessment. Patient reports that she lives at [facility], in [place]. Patient is alert/oriented. Stairs/steps: 0. PCP: Mickey Stark. Pharmacy: [facility]. Patient states she has been able to obtain all of her prescribed medications. HHS: Freda Toscano #[phone]. DME: None. Patient gives permission to speak with her brother, Petros Fernandez ([phone]). Patient is Independent with all ADL's, medication management CONSULTANT. The facility assist with cooking, laundry, cleaning X1 each week. CM discussed the availability of HH, Rehab, SNF, OP Therapy, DME services. Patient denies the need for additional services at this time and feels safe returning to previous environment. Patient denies hospitalization within the past 30 days. Patient denies the use of community resources CONSULTANT. Transportation at time of discharge: Petros Fernandez (son). CM will set up the [facility] with Anneliese [phone], opt 1. DCPIA - Discharge Planning Initial Assessment Updated by [email or web address]: Deborah Eric on 03/23/20 10:23 am * Is the patient Alert and Oriented? Yes * How many steps to enter\exit or inside your home? * PCP Hussain Ann * Pharmacy [facility] * [facility] * [facility] [place] * ADLs Independent * Equipment None * Other Equipment NA * List name and contact numbers for known caregivers / representatives who currently or will assist patient after discharge: Petros Fernandez (son) [phone] * Verbal permission to speak to the caregivers and representatives has been obtained from the patient. Yes * Community resources currently utilized Home Health * Please name any agencies selected above. Anneliese [facility] * Additional services required to return to the preadmission environment? Yes * Can the patient safely return to the preadmission environment? Yes * Has this patient been hospitalized within the prior 30 days at any hospital? No Last DP export: 03/23/20 4:38 p Patient Name: JACK HELM Page [id number] at 0830 All edits/amendments must be made on the electronic document DICTATION DATE: 03/24/20829 BANQUET BARTENDER: ROEL 03/24/20829 RPT#: [id number] DC DATE: STATUS: ADM IN [facility] [address] [place] [address] END OF REPORT
--- NOTE | 2020-03-24 08:38 | MORECARE ---
CASE MANAGEMENT DISCHARGE SUMMARY PATIENT: JACK HELM UNIT: [id number] ADM DATE: 03/14/20 AGE: 79 : 41 SEX: F ROOM/BED: D.2109 AUTHOR: BYRON,DOC PHYSICIAN: REFERRING PHYSICIAN: RICHARDSON HAWKINS MD DATE OF SERVICE: 03/24/20 Discharge Plan Patient Name: JACK HELM Facility: [facility]:[place] : 1940 Planned Disposition: Home Health Service Anticipated Discharge Date: 03/23/20 Discharge Date: Expected LOS: 9 Initial Reviewer: [email or web address] Initial Review Date: 03/14/2020 Generated: 03/24/20 9:38 am DCP- Discharge Planning Updated by [email or web address]: Deborah Eric on 03/24/20 7:[address] ITALO contacted Young, with [employer] ([phone] [place]). When the patient is stable, CM [facility] CM notified Cassandra, with [facility] that the patient will not DC today. DCP- Discharge Planning Updated by [email or web address]: Deborah Eric on 03/23/20 4:[address] ITALO contacted Radha with [facility] to arrange transportation for tomorrow. The van will pick patient up 03/24 @1200 and transport to [facility]. Patient's S tank (portable) has been delivered to the patient's room and the home concentrator will be delivered prior to the patient's return home. DCP- Discharge Planning Updated by [email or web address]: Deborah Eric on 03/23/20 1:[address] Meagan[facility] called back and states the seat van can nut picker the patient 03/24 morning, if the family is unable to drive the patient home. Meagan is attempting to contact the family for transportation today. ITALO contacted Meagan ([phone]), with [facility] regarding [facility] and the need for portable and home O2. Meagan recommended [facility], as this the DME company that the facility is contracted with. Per Kristina, with [facility], she states she is arranging transportation for the patient once she is cleared by nephrology. Per Pratik with [facility], he is trying to arrange delivery of portable O2 with [facility], here in [place]. CM notified Meagan, with [facility], that if we are unable to arrange portable O2 with [facility], then I will use a local DME. Multiple calls with [facility], with Pratik ([phone]) Mickey, regarding portable and home O2. The DME does not routinely deliver to [place] and is attempting to arrange delivery with another company in . DC Plans: Home with Freda Toscano ([phone], opt 1, [place] [phone]). Faxed appropriate information to Anneliese. Patient's brother will drive her home upon DC. CM met with patient to discuss initial discharge planning. Patient is in agreement to proceed with the assessment. Patient reports that she lives at [facility], in [place]. Patient is alert/oriented. Stairs/steps: 0. PCP: Mickey Stark. Pharmacy: [facility]. Patient states she has been able to obtain all of her prescribed medications. HHS: Cameron Freda GARRETT #[phone]. DME: None. Patient gives permission to speak with her brother, Petros Fernandez ([phone]). 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 The facility assist with cooking, laundry, cleaning X1 each week. CM discussed the availability of HH, Rehab, SNF, OP Therapy, DME services. Patient denies the need for additional services at this time and feels safe returning to previous environment. Patient denies hospitalization within the past 30 days. Patient denies the use of community resources SUPERVISOR PASTE MIXING. Transportation at time of discharge: Petros Fernandez (son). CM will set up the [facility] with Anneliese [phone], opt 1. DCPIA - Discharge Planning Initial Assessment Updated by [email or web address]: Deborah Eric on 03/23/20 10:23 am * Is the patient Alert and Oriented? Yes * How many steps to enter\exit or inside your home? * PCP Hussain Ann * Pharmacy [facility] * [facility] * [facility] * ADLs Independent * Equipment None * Other Equipment NA * List name and contact numbers for known caregivers / representatives who currently or will assist patient after discharge: Petros Fernandez (son) [phone] * Verbal permission to speak to the caregivers and representatives has been obtained from the patient. Yes * Community resources currently utilized Home Health * Please name any agencies selected above. Anneliese [facility] * Additional services required to return to the preadmission environment? Yes * Can the patient safely return to the preadmission environment? Yes * Has this patient been hospitalized within the prior 30 days at any hospital? No Last DP export: 03/24/20 7:30 a Patient Name: JACK HELM Page [id number] at 0838 All edits/amendments must be made on the electronic document DICTATION DATE: 03/24/20837 VTC TECHNICIAN: ROEL 03/24/20837 RPT#: [id number] DC DATE: STATUS: ADM IN [facility] [address] [place] [address] END OF REPORT
--- NOTE | 2020-03-24 08:46 | MORECARE ---
CASE MANAGEMENT DISCHARGE SUMMARY PATIENT: JACK HELM UNIT: [id number] ADM DATE: 03/14/20 AGE: 79 : 41 SEX: F ROOM/BED: D.2109 AUTHOR: BYRON,DOC PHYSICIAN: REFERRING PHYSICIAN: RICHARDSON HAWKINS MD DATE OF SERVICE: 03/24/20 Discharge Plan Patient Name: JACK HELM Facility: [facility]:[place] : 1940 Planned Disposition: Home Health Service Anticipated Discharge Date: 03/23/20 Discharge Date: Expected LOS: 9 Initial Reviewer: [email or web address] Initial Review Date: 03/14/2020 Generated: 03/24/20 9:45 am Comments DCP- Discharge Planning Updated by [email or web address]: Deborah Eric on 03/24/20 7:[address] CM contacted Young, with [employer] ([phone] [place]). When the patient is stable, CM will arrange transportation to [facility] ([phone]). CM [facility] Cassandra, with [facility] ([phone]) that the patient will not DC today. DCP- Discharge Planning Updated by [email or web address]: Deborah Eric on 03/23/20 4:[address] CM contacted Radha with [facility] to arrange transportation for tomorrow. The van will pick patient up 03/24 @1200 and transport to [facility]. Patient's S tank (portable) has been delivered to the patient's room and the home concentrator will be delivered prior to the patient's return home. DCP- Discharge Planning Updated by [email or web address]: Deborah Eric on 03/23/20 1:[address] Meagan, with [facility] called back and states the seat van can diamond picker the patient 03/24 morning, if the family is unable to drive the patient home. Meagan is attempting to contact the family for transportation today. ITALO contacted Meagan ([phone]), with [facility] and the need for portable and home O2. Meagan recommended [facility], as this the DME company that the facility is contracted with. Per Kristina, with [facility], she states she is arranging transportation for the patient once she is cleared by nephrology. Per Pratik with [facility], he is trying to arrange delivery of portable O2 with [employer], here in [place]. CM notified Meagan, with [facility], that if we are unable to arrange portable O2 with [facility], then I will use a local DME. Multiple calls with [facility] [facility], with Pratik ([phone]) Mickey, regarding portable and home O2. The DME does not routinely deliver to [place] and is attempting to arrange delivery with another company in . DC Plans: Home with Susy Toscanollo ([phone], opt 1, [place] [phone]). Faxed appropriate information to Anneliese. Patient's brother will drive her home upon DC. CM met with patient to discuss initial discharge planning. Patient is in agreement to proceed with the assessment. Patient reports that she lives at [facility], in [place]. Patient is alert/oriented. Stairs/steps: 0. PCP: Mickey Stark. Pharmacy: [facility]. Patient states she has been able to obtain all of her prescribed medications. HHS: Anneliese Freda GARRETT #[phone]. DME: None. Patient gives permission to speak with her brother, Petros Fernandez ([phone]). Patient is Independent with all ADL's, medication management EXTENSION PROFESSOR. The facility assist with cooking, laundry, cleaning X1 each week. CM discussed the availability of HH, Rehab, SNF, OP Therapy, DME services. Patient denies the need for additional services at this time and feels safe returning to previous environment. Patient denies hospitalization within the past 30 days. Patient denies the use of community resources EXTENSION PROFESSOR. Transportation at time of discharge: Petros Fernandez (son). CM will set up the [facility] with Anneliese [phone], opt 1. DCPIA - Discharge Planning Initial Assessment Updated by [email or web address]: Deborah Eric on 03/23/20 10:23 am * Is the patient Alert and Oriented? Yes * How many steps to enter\exit or inside your home? * PCP Hussain Ann * Pharmacy [facility] * [facility] * Facility Name [facility] * ADLs Independent * Equipment None * Other Equipment NA * List name and contact numbers for known caregivers / representatives who currently or will assist patient after discharge: Petros Fernandez (son) [phone] * Verbal permission to speak to the caregivers and representatives has been obtained from the patient. Yes * Community resources currently utilized Home Health * Please name any agencies selected above. [facility] * Additional services required to return to the preadmission environment? Yes * Can the patient safely return to the preadmission environment? Yes * Has this patient been hospitalized within the prior 30 days at any hospital? No Last DP export: 03/24/20 7:38 a Patient Name: JACK HELM Page [id number] at 0846 All edits/amendments must be made on the electronic document DICTATION DATE: 03/24/20844 EDUCATIONAL/DEVELOPMENT ASSISTANT: ROEL 03/24/20844 RPT#: [id number] DC DATE: STATUS: ADM IN [facility] [address] [place] [address] END OF REPORT
--- NOTE | 2020-03-24 10:54 | NUR ---
PT AWAKE AND ORIENTED THIS MORNING WHEN I ENTERED. TOOK MEDICATIONS WITHOUT DIFFICULTY. 20G PLACED LFA FOR CT ACCESS. HR SR 64. PT STATES SHE FEELS FINE NOW. CL IN REACH, SRX.2 WILL CNT TO MONITOR.
[2020-03-24 11:00] VITALS: BP 138/71
--- NOTE | 2020-03-24 12:32 | NUR ---
I have reviewed this patient and I concur with the Shift Assessment completed by the Licensed Practical Nurse today this shift.
--- NOTE | 2020-03-24 12:41 | NUR ---
Nutrition Follow-up: Pt reports that she was not able to eat this AM; noted cath ordered. States that her appetite remains poor and that she starts gagging with the sight, smell, or even mention of food. Reports that she had HD yesterday and that they removed 2.6 L. Diet: Renal ADA WT: 149# (03/22); 135# (03/14 - stated) Last BM: 03/24 Labs noted: K+ 4.8, Glu 109, PO4 6.2 Meds noted: Renagel, Miralax -Encourage PO intake and honor food preferences within diet restrictions. -Monitor wt; noted daily wts ordered. -RD following.
[2020-03-24 15:00] VITALS: BP 135/66
--- NOTE | 2020-03-24 17:22 | NUR ---
PT BACK FROM V BELT COVERER, CLEAN CATH, TOLERATED LYING FLAT. DRESSING C/D/I. NO COMPLAITNS OR CONCERNS, UP EATING SUPPER.
--- NOTE | 2020-03-24 19:30 | NUR ---
PT IN BED, AAO X 3, RESP EVEN AND UNLABROED. NO DISTRESS NOTED, CL IN REACH, SR UP X 2.
[2020-03-24 20:00] VITALS: BP 130/67
[2020-03-25 04:00] VITALS: BP 119/47
[2020-03-25 06:24] LABS: BASOPHILS 0.3 % (0-2); EOSINOPHILS 3.9 % (0-7); HEMATOCRIT 30.7 % (36.0-48.0); HEMOGLOBIN 9.9 g/dL (12-16); IMMATURE GRANULOCYTES 0.6 % (0-5); LYMPHOCYTES 8.3 % (15-50); MCH 30.6 pg (26.0-34.0); MCHC 32.2 g/dL (31.0-37.0); MCV 94.8 fL (80.0-100.0); MEAN PLATELET VOLUME 9.8 fL (7.4-10.4); MONOCYTES 7.4 % (2-11); NEUTROPHILS 79.5 % (40-80); PLATELET COUNT 279 10x3/uL (130-400); RBC 3.24 10x6/uL (4.00-5.40); RDW 15.5 % (11.5-14.5)
[2020-03-25 06:27] LABS: WBC 12.8 10x3/uL (4.8-10.8)
[2020-03-25 06:48] LABS: CARBON DIOXIDE 22.5 mmol/L (21.0-32.0); CREATININE - SERUM 7.5 mg/dL (0.6-1.3); PHOSPHOROUS 6.7 mg/dL (2.5-4.9); POTASSIUM - SERUM 5.5 mmol/L (3.5-5.1)
[2020-03-25 08:00] VITALS: BP 145/55
--- NOTE | 2020-03-25 09:27 | OP ---
PATIENT NAME: JACK HELM MEDICAL RECORD: [id number] :42 LOCATION:D.M2 D.2109 ADMISSION DATE:03/14/20 SURGEON: KORY ACOSTA MD DATE OF OPERATION: 03/24/2020 PROCEDURE: Left heart catheterization, selective coronary angiography, right femoral artery approach. CATHETERS: A 5-Tristanian sheath, 5/4 left and right Brunilda, 5/4 pig. The procedure was well tolerated. The patient returned to salguero, sheath removed. ExoSeal device was placed. FINDINGS: Left ventriculography in 30-degree MEJIA view shows anterior, anterior apical and true apical hypokinesis. Overall, function reduced at 30% to 35%. CORONARY ANATOMY: LEFT MAIN: Left main is free of disease. LAD: Free of disease in the diagonal system. CIRCUMFLEX: Free of disease in the marginal system. RIGHT CORONARY ARTERY: Dominant artery, gives rise to PDA, free of disease. IMPRESSION: Nonischemic cardiomyopathy, probably source of arrhythmias as well. The patient was switched to sotalol at this point as his QT interval looks somewhat prolonged on amiodarone. Further recommendations based on above. TRANSINT:[id number] Voice Confirmation ID: [id number] DOCUMENT ID: [id number] KORY ACOSTA MD at 0927 CC: [id number] DICTATION DATE: 03/24/20 1527 DRUG AND ALCOHOL COUNSELOR: 03/24/20 2239 ADM IN [place] [id number] [place] [address]
[2020-03-25 11:00] VITALS: BP 132/62
--- NOTE | 2020-03-25 17:08 | MORECARE ---
CASE MANAGEMENT DISCHARGE SUMMARY PATIENT: JACK HELM UNIT: [id number] ADM DATE: 03/14/20 AGE: 79 : 41 SEX: F ROOM/BED: D.2109 AUTHOR: BYRON,DOC PHYSICIAN: REFERRING PHYSICIAN: RICHARDSON HAWKINS MD DATE OF SERVICE: 03/25/20 Discharge Plan Patient Name: JACK HELM Facility: [facility]:[place] : 1940 Planned Disposition: Home Health Service Anticipated Discharge Date: 03/23/20 Discharge Date: Expected LOS: 9 Initial Reviewer: [email or web address] Initial Review Date: 03/14/2020 Generated: 03/25/20 6:07 pm Comments DCP- Discharge Planning Updated by [email or web address]: Deborah Eric on 03/24/20 7:[address] CM contacted Young, with [employer] ([phone] [place]). When the patient is stable, CM will arrange transportation to [facility] ([phone]). CM notified Cassandra, with [facility] ([phone]) that the patient will not DC today. DCP- Discharge Planning Updated by [email or web address]: Deborah Eric on 03/23/20 4:[address] CM contacted Radha with [facility] to arrange transportation for tomorrow. The van will pick patient up 03/24 @1200 and transport to [facility]. Patient's S tank (portable) has been delivered to the patient's room and the home concentrator will be delivered prior to the patient's return home. DCP- Discharge Planning Updated by [email or web address]: Deborah Eric on 03/23/20 1:[address] Meagan[facility] with [facility] called back and states the seat van can pick up and delivery driver the patient 03/24 morning, if the family is unable to drive the patient home. Meagan is attempting to contact the family for transportation today. ITALO contacted Meagan ([phone]), with [facility] and the need for portable and home O2. Meagan recommended [facility], as this the DME company that the facility is contracted with. Per Kristina, with [facility], she states she is arranging transportation for the patient once she is cleared by nephrology. Per Pratik with [facility], he is trying to arrange delivery of portable O2 with [facility], here in [place]. CM notified Meagan, with [facility], that if we are unable to arrange portable O2 with [facility], then I will use a local DME. Multiple calls with [facility], with Pratik ([phone]) Mickey, regarding portable and home O2. The DME does not routinely deliver to [place] and is attempting to arrange delivery with another company in . DC Plans: Home with Susy Toscanollo ([phone], opt 1, [place] [phone]). Faxed appropriate information to Anneliese. Patient's brother will drive her home upon DC. CM met with patient to discuss initial discharge planning. Patient is in agreement to proceed with the assessment. Patient reports that she lives at [facility], in [place]. Patient is alert/oriented. Stairs/steps: 0. PCP: [facility]. Pharmacy: [facility]. Patient states she has been able to obtain all of her prescribed medications. HHS: Anneliese Freda GARRETT #[phone]. DME: None. Patient gives permission to speak with her brother, Petros Fernandez ([phone]). 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 The facility assist with cooking, laundry, cleaning X1 each week. CM discussed the availability of HH, Rehab, SNF, OP Therapy, DME services. Patient denies the need for additional services at this time and feels safe returning to previous environment. Patient denies hospitalization within the past 30 days. Patient denies the use of community resources MARINE SERVICE STATION ATTENDANT. Transportation at time of discharge: Petros Fernandez (son). CM will set up the [facility] with Anneliese [phone], opt 1. DCPIA - Discharge Planning Initial Assessment Updated by [email or web address]: Deborah Eric on 03/23/20 10:23 am * Is the patient Alert and Oriented? Yes * How many steps to enter\exit or inside your home? * PCP Hussain Ann * Pharmacy [facility] * [facility] * Facility Name [facility] * ADLs Independent * Equipment None * Other Equipment NA * List name and contact numbers for known caregivers / representatives who currently or will assist patient after discharge: Petros Fernandez (son) [phone] * Verbal permission to speak to the caregivers and representatives has been obtained from the patient. Yes * Community resources currently utilized Home Health * Please name any agencies selected above. [facility] * Additional services required to return to the preadmission environment? Yes * Can the patient safely return to the preadmission environment? Yes * Has this patient been hospitalized within the prior 30 days at any hospital? No Last DP export: 03/24/20 7:46 a Patient Name: JACK HELM Page 10454 at 1708 All edits/amendments must be made on the electronic document DICTATION DATE: 03/25/201706 HELP DESK SUPERVISOR: ROEL 03/25/201706 RPT#: [id number] DC DATE: STATUS: ADM IN [facility] [address] [place] [address] END OF REPORT
--- NOTE | 2020-03-25 19:30 | NUR ---
PT IN BED, AAO X 3, RESP EVEN AND UNLABORED, NO DISTRESS NOTED, CL IN REACH, SR UP X 2.
[2020-03-25 20:00] VITALS: BP 150/57
[2020-03-26] VITALS (27 sets, daily range): BP systolic 80–156; BP diastolic 20–70
[2020-03-26 05:17] LABS: BASOPHILS 0.5 % (0-2); EOSINOPHILS 2.8 % (0-7); HEMATOCRIT 29.3 % (36.0-48.0); HEMOGLOBIN 9.6 g/dL (12-16); IMMATURE GRANULOCYTES 1.3 % (0-5); LYMPHOCYTES 12.4 % (15-50); MCH 30.8 pg (26.0-34.0); MCHC 32.8 g/dL (31.0-37.0); MCV 93.9 fL (80.0-100.0); MONOCYTES 9.2 % (2-11); NEUTROPHILS 73.8 % (40-80); PLATELET COUNT 254 10x3/uL (130-400); RBC 3.12 10x6/uL (4.00-5.40); RDW 15.7 % (11.5-14.5); WBC 12.6 10x3/uL (4.8-10.8)
[2020-03-26 05:32] LABS: ANION GAP 16.7 mmol/L (8-16); CALCIUM 9.5 mg/dL (8.5-10.1); CARBON DIOXIDE 24.7 mmol/L (21.0-32.0); CREATININE - SERUM 6.2 mg/dL (0.6-1.3); PHOSPHOROUS 5.9 mg/dL (2.5-4.9); POTASSIUM - SERUM 4.4 mmol/L (3.5-5.1)
--- NOTE | 2020-03-26 07:53 | NUR ---
PT AWAKE AND CONFUSED. LYING IN BED, TURNED TO RIGHT SIDE. NO COMPLAINTS OR CONCERNS AT THIS TIME. CL IN REACH, SRX2.
[2020-03-26] MEDS ORDERED: BETAPACE 80 MG80 MG PO (09:15)
--- NOTE | 2020-03-26 09:41 | NUR ---
PT WAS ALERT AND ORIENTED WHEN I ENTERED ROOM THIS AM FOR MEDICATIONS (SEE MAR FOR ACCURATE TIMES). PT TOOK MEDICATIONS WITHOUT COMPLICATIONS, SITTING UP ON CHAIR BESIDE BED. REQUESTED A SHOWER PRIOR TO DIALYSIS SHE WOULD BE GOING HOME AFTER. PT WAS VERY INSISTENT OF WANTING I/V OUT AND TELEMTRY OFF TO SHOWER. INFOMRED PT WE DO NOT TYPICALLY REMOVE THESE D/T PROTOCOL BUT PT CONTINUED TO INSIST REMOVED IV TIP INTACT. WHEN I LEFT ROOM PT WAS ISTTING UP IN BEDSIDE CHAIR PAKCING HER THINGS TO GO HOME. WHILE GIIVNG MEDICATIONS TO ANOTHER PT I SAW PTS CL ON, WENT TO ANSWER IT. PT WAS LYING IN BED, UNRESPONSIVE, NO PULSE OR RESPIRATIONS. CALLED CODE BLUE. PT WAS INTUBATED AND TRANSFERED TO CVICU FOLLOWING CODE.
[2020-03-26 10:54] LABS: BASOPHILS 0.5 % (0-2); EOSINOPHILS 3.9 % (0-7); HEMATOCRIT 31.8 % (36.0-48.0); HEMOGLOBIN 10.2 g/dL (12-16); IMMATURE GRANULOCYTES 2.4 % (0-5); LYMPHOCYTES 9.2 % (15-50); MCH 30.5 pg (26.0-34.0); MCHC 32.1 g/dL (31.0-37.0); MCV 95.2 fL (80.0-100.0); MEAN PLATELET VOLUME 10.4 fL (7.4-10.4); MONOCYTES 7.1 % (2-11); NEUTROPHILS 76.9 % (40-80); RBC 3.34 10x6/uL (4.00-5.40); RDW 15.6 % (11.5-14.5)
[2020-03-26 10:55] LABS: PLATELET COUNT 391 10x3/uL (130-400); WBC 17.8 10x3/uL (4.8-10.8)
[2020-03-26 11:02] LABS: INR 1.3 (0.85-1.17); PROTIME 16.1 SECONDS (11.6-15.0)
[2020-03-26 11:24] LABS: ALBUMIN 2.7 g/dL (3.4-5.0); ANION GAP 15.1 mmol/L (8-16); BILIRUBIN - TOTAL 0.68 mg/dL (0.2-1.3); CALCIUM 9.6 mg/dL (8.5-10.1); CARBON DIOXIDE 29.9 mmol/L (21.0-32.0); CREATININE - SERUM 6.6 mg/dL (0.6-1.3); PROTEIN - SERUM 7.1 g/dL (6.4-8.2)
[2020-03-26 11:29] LABS: TROPONIN-I 0.23 ng/mL (0.000-0.060)
--- NOTE | 2020-03-26 14:56 | NUR ---
0945: REC'D POST CODE TO ROOM CV 05. TRANSFERRED TO ICU BED BY TOTOAL LIFT. CONNECTED TO MONITOR AND VS OBTAINED. NUMEROUS ATTEMPTS MADE TO START PIV IN L ARM WITHOUT SUCCESS. DR. SALCEDO HERE. OKAYED TO USE HEMOSPLIT. 1415: X RAY HERE TO TAKE DOWN FOR CTA OF CHEST. TWO MORE ATTEMPTS MADE TO START PERIPHERAL IV WITHOUT SUCCESS. ATTEMPT MADE TO PAGE DR. SALCEDO AND DR. TOMPKINS.
--- NOTE | 2020-03-26 17:16 | NUR ---
1530: DR. SALCEDO AND BOTH NOTIFIED OF INABILITY TO OBTAIN PERIPHERAL IV AND THEREFORE UNABLE TO DO CTA OF CHEST. NO NEW ORDERS.
--- NOTE | 2020-03-26 19:00 | NUR ---
1899 HEAD TO TOE ASSESSMENT COMPLETED. PT AWAKE, AND CALM ON VENT. REPOSITIONED FOR COMFORT. 2052. VTACH NOTED ON MONITOR. ACLS INITIATED. PADS PLACED ON PATIENT. PT WENT ASYSOTLE. COMPRESSIONS INITIATED. PT WENT BACK INTO NSB. HR 40. 2055- HR IN 30 - 40'S. FOR MOMENTS. THEN WENT BACK TO 40-50'S. 2100- PT HAS 10-15 BEAT VTACH WITH A PULSE. THEN HAD A RHYTHM OF 30'S. EXTERNALLY PACED PT, AND PAGED DR ACOSTA. PT THEN WENT INTO VTACH. CODE CALLED.COMPRESSIONS STARTED WHILE. PT SHOCKED WITH 200 ARIEL. CODE TEAM ARRIVED. UPDATED ACLS. ORDERS RECIEVED TO ADMISTER 2 GRAM MAG SULFATE, 1 AMP OF ATROPINE, AND START A DOPAMINE. DR ACOSTA CALLED AND CAROLINE GREY UPDATED CONDITION. NO NEW ORDERS. 2299 REASSESSMENT COMPLETED. COARSE CRACKLES NOTED. PT CONTINUES TO HAVE ECTOPY. WITH 10 TO 15 BEATS OF VTACH WITH PULSE. 0000 VTACH NOTED ON MONITOR. NO PULSE NOTED. INITIATED ACSL. COMPRESSIONS INITIATED WHILE DEFIB CHARGED. SHOCKED PT AND SHE RESUMED NSB. 1230- MORE ECTOPE NOTED. PT WENT BACK INTO VTACH WITHOUT PULSE. COMPRESSIONS STARTED WHILE DEFIB CHARGED. PT SHOCKED. THEN RESUMED SINUS RUTHY. DR ACOSTA PAGED 0034. DR ACOSTA CALLED BACK AT 0038. UPDATED CONDITON. ORDERS RECIEVED TO STOP DOPAMINE GTTS, AND ADMINISTER LIDOCAINE 100 MG. 0230- ASSESSMENT COMPLETED NO CHANGES. PT CONTINUES TO HAVE ECTOPE. PAGED DR ACOSTA. DR ACOSTA RETURNED CALL AND UPDATED CONDITION. ORDERS RECIEVED TO START A LIDOCAINE, AND LEVEPHED GTT. 499- PT AWAKE WATCHING TV. REPOSITIONED FOR COMFORT.
[2020-03-26 22:38] LABS: HEMATOCRIT 28.8 % (36.0-48.0); HEMOGLOBIN 9.3 g/dL (12-16); MCH 30.5 pg (26.0-34.0); MCHC 32.3 g/dL (31.0-37.0); MCV 94.4 fL (80.0-100.0); MEAN PLATELET VOLUME 10.4 fL (7.4-10.4); PLATELET COUNT 333 10x3/uL (130-400); RBC 3.05 10x6/uL (4.00-5.40); RDW 15.5 % (11.5-14.5); WBC 15.9 10x3/uL (4.8-10.8)
[2020-03-26 22:42] LABS: BASOPHILS 1 % (0-2); EOSINOPHILS 1 % (0-7); LYMPHOCYTES 8 % (15-50); MONOCYTES 2 % (2-11); NEUTROPHILS 84 % (40-80); PLATELET ESTIMATE NORMAL
[2020-03-26 22:43] LABS: APTT 44.1 SECONDS (22.8-39.4)
[2020-03-26 22:47] LABS: ALBUMIN 2.4 g/dL (3.4-5.0); ANION GAP 16.3 mmol/L (8-16); BILIRUBIN - TOTAL 0.49 mg/dL (0.2-1.3); CALCIUM 9.3 mg/dL (8.5-10.1); CARBON DIOXIDE 26.8 mmol/L (21.0-32.0); CREATININE - SERUM 7.2 mg/dL (0.6-1.3); MAGNESIUM - SERUM 2.3 mg/dL (1.8-2.4); POTASSIUM - SERUM 5.1 mmol/L (3.5-5.1); PROTEIN - SERUM 6.3 g/dL (6.4-8.2)
[2020-03-26 22:48] LABS: INR 1.25 (0.85-1.17); PROTIME 15.6 SECONDS (11.6-15.0)
[2020-03-27] VITALS (83 sets, daily range): BP systolic 80–153; BP diastolic 31–89
[2020-03-27 08:46] LABS: BASOPHILS 0.3 % (0-2); EOSINOPHILS 0.7 % (0-7); HEMATOCRIT 26.9 % (36.0-48.0); HEMOGLOBIN 8.7 g/dL (12-16); IMMATURE GRANULOCYTES 0.9 % (0-5); LYMPHOCYTES 6.7 % (15-50); MCH 30.3 pg (26.0-34.0); MCHC 32.3 g/dL (31.0-37.0); MCV 93.7 fL (80.0-100.0); MONOCYTES 8.7 % (2-11); NEUTROPHILS 82.7 % (40-80); PLATELET COUNT 346 10x3/uL (130-400); RBC 2.87 10x6/uL (4.00-5.40); RDW 15.4 % (11.5-14.5); WBC 14.7 10x3/uL (4.8-10.8)
[2020-03-27 09:50] LABS: ANION GAP 17.9 mmol/L (8-16); CALCIUM 9.3 mg/dL (8.5-10.1); CARBON DIOXIDE 24.4 mmol/L (21.0-32.0); CREATININE - SERUM 7.7 mg/dL (0.6-1.3); POTASSIUM - SERUM 5.3 mmol/L (3.5-5.1); VANCOMYCIN - RANDOM 27.2 ug/mL (10.0-20.0)
--- NOTE | 2020-03-27 19:00 | NUR ---
REPORT RECEIVED. RECEIVED PATIENT IN BED. SEDATED/INTUBATED. ETT INTACT/SECURE/PATENT CONNECTED TO MECHANICAL VENT AT ORDERED SETTINGS WITH ALARMS SET. SHIFT ASSESSMENT COMPLETED PER FLOW SHEET WITH NO ACUTE DISTRESS OBSERVED. MONITORS CONNECTED TO PATIENT WITH ALARMS SET. VSS. SINUS RUTHY ON MONITOR WITH NO ECTOPY SEEN. LEVOPHED GTT TITRATED TO EFFECT. WILL CONTINUE CURRENT POC
--- NOTE | 2020-03-27 21:00 | NUR ---
SEDATED/INTUBAED. VSS. ROUSES EASILY AND FOLLOWS COMMANDS. CALL LIGHT IN REACH
--- NOTE | 2020-03-27 23:00 | NUR ---
REASSESSMENT COMPLETED PER FLOW SHEET WITH NO ACUTE DISTRESS OBSERVED. VSS. SEDATED/INTUBATED. ROUSES EASILY AND ABLE TO FOLLOW COMMANDS. TURNED AND REPOSTIONED. FERNANDA WELL. CONTINUES SINUS RUTHY ON MONITOR WITH NO ECTOPY. WILL CONTINUE CURRENT POC
[2020-03-28] VITALS (61 sets, daily range): BP systolic 67–158; BP diastolic 22–82
--- NOTE | 2020-03-28 01:00 | NUR ---
TURNED AND REPOSITIONED. ORAL CARE GIVEN. FERNANDA WELL. VSS. CALL LIGHT IN REACH.
--- NOTE | 2020-03-28 03:00 | NUR ---
REASSESSMENT COMPLETED PER FLOW SHEET WITH NO ACUTE DISTRESS OBSERVED. VSS. TURNED AND REPOSITIONED. ORAL CARE GIVEN. FERNANDA WELL. 0500 SEDATED/INTUBATED. ROUSES EASILY . VSS.
[2020-03-28 05:29] LABS: BASOPHILS 0.5 % (0-2); EOSINOPHILS 4.1 % (0-7); HEMATOCRIT 27.3 % (36.0-48.0); HEMOGLOBIN 8.6 g/dL (12-16); IMMATURE GRANULOCYTES 1.1 % (0-5); LYMPHOCYTES 13.2 % (15-50); MCH 30.1 pg (26.0-34.0); MCHC 31.5 g/dL (31.0-37.0); MCV 95.5 fL (80.0-100.0); MEAN PLATELET VOLUME 9.8 fL (7.4-10.4); MONOCYTES 10.4 % (2-11); NEUTROPHILS 70.7 % (40-80); PLATELET COUNT 370 10x3/uL (130-400); RBC 2.86 10x6/uL (4.00-5.40); RDW 15.6 % (11.5-14.5); WBC 14.1 10x3/uL (4.8-10.8)
[2020-03-28 05:43] LABS: CALCIUM 9.2 mg/dL (8.5-10.1); CARBON DIOXIDE 23.9 mmol/L (21.0-32.0); CREATININE - SERUM 9.1 mg/dL (0.6-1.3); POTASSIUM - SERUM 4.9 mmol/L (3.5-5.1); VANCOMYCIN - RANDOM 25.6 ug/mL (10.0-20.0)
--- NOTE | 2020-03-28 07:50 | NUR ---
SHIFT REPORT RECEIVED. PT ON VENT R-14, TV 450, FIO2 35%, PEEP 5. ETT SIZE 7.5 AT 23 LIP LINE MIDLINE. HAS RIGHT GROIN HEMOSPLIT WITH NS AT 15ML/HR, LIDOCAINE AT 2MG/MIN, AND FENTANYL AT 100MCG/HR. LEXA FISTAL. BUE BRUISING NOTED. BRUISING NOTED TO CHEST. WRIST RESTRAINTS IN PLACE PER ORDER. SAFETY MEASURES IN PLACE. WILL CONTINUE TO MONITOR.
--- NOTE | 2020-03-28 10:38 | NUR ---
CONSENT RECEIVED FOR PERMANENT PACEMAKER PLACEMENT FROM MONCHO HUGHES PT'S SON. LAURY HOLGUIN ALSO NOTIFIED OF SCHEDULED PROCEDURE. SHE HAS GIVEN PERMISSION FOR MONCHO HUGHES TO GIVE CONSENTS FOR SCHEDULED PROCEDURES.
--- NOTE | 2020-03-28 11:20 | NUR ---
Nutrition Follow-up: Intubated 03/26. No nutrition support. Noted plans for PPM today. Diet: NPO Wt: 145.5# (03/28); 149# (03/22) Last BM: 03/26 per chart Labs noted: Na 123, K+ 4.9, Glu 99, PO4 7.0 (03/27) Meds reviewed -If pt remains intubated, rec initiate nutrition support as medically feasible; rec Nepro @ goal rate of 35 mL/hr. -Monitor wt. -RD following.
--- NOTE | 2020-03-28 11:20 | NUR ---
HR 37 AT, ATROPINE GIVEN PER ORDER. BP DROPPED TO 70S. LEVOPHED INITIATED. CURRENTLY AT 3MCG/MIN. DR. ACOSTA NOTIFIED. WAITING PROFESSOR OF ARCHITECTURE BACK.
--- NOTE | 2020-03-28 12:19 | NUR ---
SPOKE WITH JESSICA PEREZ'S SISTER. PASSCODE VERIFIED. BRIEF UPDATE GIVEN. WILL CALLL BACK LATER TO SEE HOW PROCEDURE WENT.
--- NOTE | 2020-03-28 12:41 | NUR ---
PT NOT IN ROOM AT THIS TIME. TRANSPORTED TO [facility] FOR PERMANENT PACEMAKER PLACEMENT BY DR. LOAIZA.
--- NOTE | 2020-03-28 13:47 | EC ---
PATIENT:JACK HELM DATE OF SERVICE: 03/14/20 SEX: F MEDICAL RECORD: [id number] DATE OF : 41 LOCATION:[place] [address] AGE OF PATIENT: 79 ADMISSION DATE: 03/14/20 REFERRING PHYSICIAN: INTERPRETING PHYSICIAN: KORY ACOSTA MD ECHOCARDIOGRAM REPORT ECHO CHARGES 4 ECHO COMPLETE Date: 03/24/20 CLINICAL DIAGNOSIS: HTN ECHOCARDIOGRAPHIC MEASUREMENTS (adult normal given) AC root (d.<3.7cm) 2.8 cm LV Septum d (<1.2 cm> 0.8 cm Valve Excursion 1.3 cm LV Septum (systole) 0.9 cm Left Atria (s.<4.0cm> 3.3 cm LVPW d(<1.2cm) 0.8 cm RV (d.<2.3cm) 2.5 cm LVPW (sytole) 1.1 cm LV diastole(<5.6CM) 7.3 cm MV E-F(>70mm/sec) cm LV systole 6.8 cm LVOT Diameter 1.5 cm MV exc.(>10mm) cm Est.ejection fraction (50-75%) % DOPPLER: LVIT cm/sec A 110 cm/sec E 89 cm/sec LA cm/sec RVSP 16.6 mmHg LVOT 110 cm/sec AOP1/2T m/s Asc. Ao 124 cm/sec RVOT 69 cm/sec RA cm/sec PA 69 cm/sec AV Gradient Peak 6.2 mmHg AV Mean 3.4 mmHg AV Area 1.6 cm MV Gradient Peak 6.4 mmHg MV Mean 2.8 mmHg MV Area cm COMMENTS: Environmental Construction Engineer: Barb DONIS Billet Recorder: 2 Dr. Artis TAPE# PACS Pericardial Effusion N DATE OF SERVICE: Adequate 2D, color flow imaging, spectral Doppler, and M-Mode. No LVH. LV internal dimensions are normal. LV is globally hypo, more marked apical hypokinesis. Overall function reduced, 35% to 40%. Aortic valve is sclerosed without stenosis by Doppler interrogation. Left atrium is normal at 3.3 cm, no evidence of prolapse. Mild MR. Right-sided chambers are grossly normal. Trace TR. ECHOCARDIOGRAM REPORT [id number] JACK HELM TRANSINT:[id number] Voice Confirmation ID: [id number] DOCUMENT ID: [id number] KORY ACOSTA MD at 1347 CC: [id number] DICTATION DATE: 03/25/20 1425 TANK CAR REPAIRER: 03/26/[address] [facility] [address] [place] [id number]
--- NOTE | 2020-03-28 13:58 | NUR ---
PT ARRIVED TO UNIT AROUND 1350 VIA BED. PACEMAKER TO LEFT CHEST WITH DRESSING C/D/I. HR 70 PACED. CONTINUES ON VENT WITH PREVIOUS SETTINGS. HAS NS AT 50ML/HR AND FENTANYL AT 2ML/HR. PT SEDATED. WRIST RESTRAITS IN PLACE PER ORDER. WILL CONTINUE TO MONITOR. PHONE NUMBER FOR MONCHO HUGHES AND LAURY HOLGUIN GIVEN TO DR. LOAIZA. NO FURTHER NEEDS AT THIS TIME. PT NOT WEARING A SLING AT THIS TIME. NEEDS TO WEAR SLING ON LEFT ARM WHEN SHE AWAKENS. NO FURTHER NEEDS AT THIS TIME. WILL CONTINUE TO MONITOR.
[2020-03-28 14:37] LABS: HEMATOCRIT 25.5 % (36.0-48.0); HEMOGLOBIN 8.1 g/dL (12-16); MCHC 31.8 g/dL (31.0-37.0); MCV 94.4 fL (80.0-100.0); RBC 2.7 10x6/uL (4.00-5.40); RDW 15.7 % (11.5-14.5); WBC 11.4 10x3/uL (4.8-10.8)
[2020-03-28 14:53] LABS: APTT 38.7 SECONDS (22.8-39.4); INR 1.48 (0.85-1.17); PROTIME 17.8 SECONDS (11.6-15.0)
[2020-03-28 15:12] LABS: ANION GAP 21.3 mmol/L (8-16); CALCIUM 8.9 mg/dL (8.5-10.1); CREATININE - SERUM 9.6 mg/dL (0.6-1.3); POTASSIUM - SERUM 5.3 mmol/L (3.5-5.1)
--- NOTE | 2020-03-28 18:53 | NUR ---
AWAKE AND ALERT. FOLLOWS SIMPLE COMMANDS. WRIST RESTRAINTS IN PLACE. NO FURTHER NEEDS AT THIS TIME. WILL CONTINUE TO MONITOR.
--- NOTE | 2020-03-28 19:00 | NUR ---
REPORT RECEIVED. PT SEDATED ON VENT. NO ACUTE DISTRESS NOTED, FOLLOWS COMMANDS. RT GROIN HEMOSPLIT INFUSING, SEE IV FLOWSHEET. RT ARM RESERVE. ASSESSMENT COMPLETED, SEE FLOWSHEET. WILL CONTINUE TO MONITOR.
[2020-03-29] VITALS (21 sets, daily range): BP systolic 99–204; BP diastolic 21–97
[2020-03-29 05:26] LABS: BASOPHILS 0.2 % (0-2); EOSINOPHILS 0.4 % (0-7); HEMATOCRIT 29.9 % (36.0-48.0); HEMOGLOBIN 9.4 g/dL (12-16); IMMATURE GRANULOCYTES 0.4 % (0-5); LYMPHOCYTES 3.1 % (15-50); MCH 29.9 pg (26.0-34.0); MCHC 31.4 g/dL (31.0-37.0); MCV 95.2 fL (80.0-100.0); MEAN PLATELET VOLUME 10.2 fL (7.4-10.4); MONOCYTES 7.3 % (2-11); NEUTROPHILS 88.6 % (40-80); RBC 3.14 10x6/uL (4.00-5.40); RDW 15.9 % (11.5-14.5)
[2020-03-29 05:31] LABS: PLATELET COUNT 420 10x3/uL (130-400); WBC 19.5 10x3/uL (4.8-10.8)
--- NOTE | 2020-03-29 06:28 | NUR ---
2100 - PT RESTING IN BED, NO ACUTE DISTRESS NOTED. 2300 - REASSESSMENT COMPLETED, SEE FLOWSHEET. 0100 - PT RESTLESS, PULLING AT LINES. FOLLOWS COMMANDS, WILL CONTINUE TO MONITOR. 0300 - REASSESSMENT COMPLETED, SEE FLOWSHEET. 0500 - NO ACUTE DISTRESS NOTED. WILL CONTINUE TO MONITOR.
[2020-03-29 06:44] LABS: CALCIUM 9.9 mg/dL (8.5-10.1); CREATININE - SERUM 10.6 mg/dL (0.6-1.3); VANCOMYCIN - RANDOM 21.1 ug/mL (10.0-20.0)
[2020-03-29 06:45] LABS: ANION GAP 29.9 mmol/L (8-16); CARBON DIOXIDE 15.5 mmol/L (21.0-32.0); PHOSPHOROUS 9.6 mg/dL (2.5-4.9)
[2020-03-29 06:47] LABS: POTASSIUM - SERUM 6.4 mmol/L (3.5-5.1)
--- NOTE | 2020-03-29 08:09 | NUR ---
SUPPOSITORY FOR FEVER 102.8 GIVEN AT THIS TIME PER ORDERS. ICEPACK PLACED UNDER ARMS AND GROIN. IV TUBBING CHANGED AT THIS TIME PER PROTOCOL.
--- NOTE | 2020-03-29 09:11 | NUR ---
TRANSFERRED TO ROOM 2304 VIA BED. DENTURES, GLASSES, PHONE BLOOD BANK TECHNICIAN AND PERSONAL BELONGINGS BAG SENT WITH PATIENT.
--- NOTE | 2020-03-29 15:37 | NUR ---
1500 OR CALL FOR PREOP - THIS WAS DONE PER ORDERS 1520 PT LEFT WITH OR STAFF FOR PROCEDURE.
--- NOTE | 2020-03-29 16:28 | NUR ---
1613 ARRIVED BACK FROM OR, WAKING FROM ANESTHESIA. NEW MEDS/TUBING FOR NEW LINE PROVIDED. DENIES PAIN/NEEDS, CONTINUES WITH VENT.
--- NOTE | 2020-03-29 17:01 | NUR ---
0911 RECIEVED PATIENT FROM CVICU. RECIEVED PERSONAL BELONGINGS. 1100 ASSESSMENT COMPLETE, PLEASE SEE FLOW SHEETS FOR DETAILS. ORAL CARE AND TURNING PROVIDED. 1300 PATIENT WAS ABLE TO TURN SELF TO REPOSITION, ORAL CARE PROVIDED. 1500 REASSESSMENT COMPLETE, SEE FLOW SHEET. ORAL CARE AND TURNING PROVIDED. 1700 RESTING COMFORTABLE ON VENT. DENIES PAIN/NEEDS. HEMODYNAMICALLY STABLE AT THIS TIME, WILL CONTINUE TO MONITOR.
--- NOTE | 2020-03-29 19:20 | NUR ---
PT AROUSES EASILY, ETT PATENT TO VENT, LUNGS CLEAR, BILAT SWR IN USE, RIGHT GROIN HEMISPLIT INTACT WITH DIALYSIS IN PROGRESS, HD NURSE @ BEDSIDE, PT COOPERATIVE WITH CARE, WILL CONT TO MONITOR
[2020-03-29 21:17] LABS: CALCIUM 9.1 mg/dL (8.5-10.1)
[2020-03-29 21:20] LABS: ANION GAP 18.5 mmol/L (8-16); CARBON DIOXIDE 22.3 mmol/L (21.0-32.0); POTASSIUM - SERUM 3.8 mmol/L (3.5-5.1)
[2020-03-30] VITALS (24 sets, daily range): BP systolic 130–199; BP diastolic 38–105
--- NOTE | 2020-03-30 | NUR ---
PT AWAKE, ASKED IF SHE WAS DYING, INFORMED PT SHE WAS DOING WELL WITH POSSIBLE EXTUBATION IN AM, INSTRUCTED ON RELAXATION TECHNIQUES
[2020-03-30 06:43] LABS: ANION GAP 17.6 mmol/L (8-16); CALCIUM 9.1 mg/dL (8.5-10.1); CARBON DIOXIDE 24.2 mmol/L (21.0-32.0); CREATININE - SERUM 5.2 mg/dL (0.6-1.3); POTASSIUM - SERUM 3.8 mmol/L (3.5-5.1); VANCOMYCIN - RANDOM 23.1 ug/mL (10.0-20.0)
[2020-03-30 06:44] LABS: PHOSPHOROUS 5.2 mg/dL (2.5-4.9)
--- NOTE | 2020-03-30 08:06 | NUR ---
Nutrition follow-up: Pt intubated with possible extubation today Remains NPO since 03/26. Labs reviewed Wt: 146# Hemosplit placed 03/29 If unable to extubated today will need to start TF of Nepro @ goal rate of 35 ml/hr RDN following.
[2020-03-30 08:28] LABS: BASOPHILS 0.2 % (0-2); EOSINOPHILS 0.7 % (0-7); IMMATURE GRANULOCYTES 0.6 % (0-5); LYMPHOCYTES 4.9 % (15-50); MCHC 31.8 g/dL (31.0-37.0); MCV 94.3 fL (80.0-100.0); MEAN PLATELET VOLUME 10.1 fL (7.4-10.4); MONOCYTES 7.5 % (2-11); NEUTROPHILS 86.1 % (40-80); RDW 15.8 % (11.5-14.5); WBC 15.6 10x3/uL (4.8-10.8)
[2020-03-30 08:29] LABS: HEMATOCRIT 23.3 % (36.0-48.0); HEMOGLOBIN 7.4 g/dL (12-16); PLATELET COUNT 331 10x3/uL (130-400); RBC 2.47 10x6/uL (4.00-5.40)
--- NOTE | 2020-03-30 09:50 | NUR ---
GEORGI PAYNE WITH CARDIOLOGY AT BEDSIDE. WILL HOLD PO BETAPACE AND COZARR PATIENT IS INTUBATED AND WITHOUT AND OGT/NGT. PLAN IS FOR PATIENT TO BE EXTUBATED LATER ON THIS AFTERNOON.
--- NOTE | 2020-03-30 10:00 | NUR ---
CHG BATH AND COMPLETE LINEN CHANGE BEING DONE AT THIS TIME BY PCT
--- NOTE | 2020-03-30 10:35 | OP ---
PATIENT NAME: JACK VILLASENOR MEDICAL RECORD: [id number] :41 LOCATION:[facility] D.2304 ADMISSION DATE:03/14/20 SURGEON: RICHARDSON HAWKINS MD DATE OF OPERATION: 03/14/2020 REFERRED BY: Dr. Tee Anderson and Dr. Cliff Alcocer. PREOPERATIVE DIAGNOSES: End-stage renal disease and dependence on hemodialysis and severe hemorrhage from ruptured right upper extremity AV fistula. POSTOPERATIVE DIAGNOSES: End-stage renal disease and dependence on hemodialysis and severe hemorrhage from ruptured right upper extremity AV fistula. OPERATION PERFORMED: Ligation of AV fistula on the right arm and removal of poorly placed displaced tunneled dialysis catheter from the right internal jugular vein and then ultrasound-guided insertion of a 35 cm HemoSplit via the right common femoral vein with image documentation of real-time ultrasound and fluoroscopic imaging. SURGEON: Richardson Hawkins MD ANESTHESIA: General per MEDICAL BILLING INSTRUCTOR. PREOPERATIVE NOTE: Ms. Villasenor is a 79-year-old white female patient who has been dialyzing for a number of years with a right upper extremity proximal radial artery to cephalic vein arteriovenous fistula. She has had problems with cephalic arch stenosis and presented to [facility] this morning to Dr. Anderson for fistulogram. Dr. Anderson documented severe 99% long segmental stenosis near occlusion of the cephalic arch, and during the procedure, the patient ruptured her fistula in the upper third of the arm. Dr. Anderson was able to partially control this leak with Covera stent and direct pressure, but she continued to bleed and became hypotensive and she was then transferred by ambulance from [facility] to [place]; after resuscitation in the Emergency Room and with essentially cessation of hemorrhage and stabilization due to proper application of a right upper extremity arterial tourniquet by hospital pharmacy technician. The patient is stabilized and is brought to the operating room at this time to ligate her fistula and indicated procedures. She has a right internal jugular dialysis catheter, which is poorly positioned then inserted and needs to be changed. I will probably insert it either on the left or in the femoral location. Under anesthesia, the patient was prepped and draped in sterile manner. I made a transverse incision just beneath the antecubital space and exposed the fistula and then doubly ligated it with 2-0 silk. This left about an inch of pulsatile cephalic vein proximal to the arterial anastomosis. The wound was infiltrated with 0.25% plain Marcaine and closed with running intracuticular Stratafix suture and Dermabond glue and it was dressed with Maxorb AG, Cavilon, and Tegaderm. The patient was then reprepped and redraped. I removed the tunneled dialysis catheter from the right neck with traction and hemostasis was obtained with a period of direct pressure and then a sterile airtight dressing was applied. I examined the left neck with ultrasound and found exposure to be very poor due to the patient's scoliosis and poor range of motion and so we went to the right femoral approach, reprepped and redraped. The right common femoral vein was located with a Duplex Ultrasound. It was of normal caliber and fully compressible with no thrombosis or other sonographic abnormality. A small incision was made beneath the groin crease and through that a micropuncture OPERATIVE REPORT [id number] JACK VILLASENOR needle was inserted into the vein with realtime ultrasound imaging for guidance. An 0.018 guidewire was inserted and then a catheter was passed over that and a guidewire and catheter exchange performed and then serial dilators were passed under fluoroscopy and lastly I inserted a peel-away dilator. I made a small incision more distally on the anterior thigh and passed a 35 cm HemoSplit from there up to the more proximal incision and then inserted it through the peel-away sheath. It was necessary to manipulate the catheter just a little bit under fluoroscopy to get the split end to pass properly up into the proximal inferior vena cava. When that was done, the catheter was accessed and aspirated, free return of blood confirmed from each lumen. It was then heparin locked with 1000 units per cc heparin, clamped and capped. The catheter was sutured to the skin near the entry site with 2-0 Prolene. The incision was closed with interrupted inverted 3-0 Vicryl and Dermabond glue and dressed with Maxorb Ag, Tegaderm, and Cavilon skin prep. Chlorhexidine Biopatch was applied to the catheter at the entry site and a sterile transparent plastic CVL dressing over that. The catheter functioned well. The patient was then awakened and in stable condition taken to the recovery room. The patient will need long-term access and at some point assuming she survives and continues dialysis, I think a left upper extremity AV graft will be the next access to provide. TRANSINT:[id number] Voice Confirmation ID: [id number] DOCUMENT ID: [id number] RICHARDSON HAWKINS MD at 1035 CC: TEE ANDERSON MD and CLIFF ALCOCER [id number] DICTATION DATE: 03/28/20932 GOLF TOURNAMENT CONSULTANT: 03/28/202051 ADM IN [facility] [address] [place] [address]
--- NOTE | 2020-03-30 10:35 | OP ---
PATIENT NAME: JACK VILLASENOR MEDICAL RECORD: [id number] :41 LOCATION:[facility] D.2304 ADMISSION DATE:03/14/20 SURGEON: RICHARDSON HAWKINS MD DATE OF OPERATION: 03/29/2020 REFERRED BY: Tee Anderson MD PREOPERATIVE DIAGNOSES: End-stage renal disease and dependence on hemodialysis, nonfunctional right common femoral vein tunneled dialysis catheter. POSTOPERATIVE DIAGNOSES: End-stage renal disease and dependence on hemodialysis, nonfunctional right common femoral vein tunneled dialysis catheter. OPERATION PERFORMED: Tunneled dialysis catheter exchange under fluoroscopy. ANESTHESIA: General endotracheal per HEAD LIBRARIAN. SURGEON: Richardson Hawkins MD PREOPERATIVE NOTE: Ms. Villasenor is a desperately ill 79-year-old white female patient presently in ICU on a ventilator after suffering cardiac arrest. She has had a pacemaker implanted and is presently without means for dialysis. A right common femoral vein HemoSplit, which I placed over a week ago is thrombosed. She is brought back to the operating room today with plans to do a HemoSplit exchange. DESCRIPTION OF PROCEDURE: On the operating table under anesthesia, the patient was prepped and draped in a sterile manner. Under fluoroscopy, I advanced an 0.035 Roadrunner guidewire through the venous limb of the existing catheter and then pulled the catheter back several centimeters, injected contrast to perform an inferior venacavogram and this revealed rather slow flow in the inferior vena cava, but normal caliber and there was no visible evidence of thrombosis. Both lumens were injected and there was really no resistance to the injection of contrast on either side. The catheter was then removed just by traction over the guidewire under fluoroscopy and a new 35-cm HemoSplit catheter was prepared and advanced over the same guidewire somewhat more proximally up into the inferior vena cava. Both lumens were accessed and aspirated, free return of blood confirmed. They were then both flushed with saline and heparin locked, clamped and capped. The catheter was sutured to the skin near the entry site with 2-0 Prolene and sterile dressings applied. TRANSINT:[id number] Voice Confirmation ID: [id number] DOCUMENT ID: [id number] RICHARDSON HAWKINS MD at 1035 CC: TEE ANDERSON MD [id number] DICTATION DATE: 03/29/20 1709 YARN DYER: 03/30/20 0138 ADM IN [facility] [address] [facility]
--- NOTE | 2020-03-30 11:09 | NUR ---
SPOKE WITH TRACEY PHILLIPS WITH RENAL IN REGARDS TO [facility]&H. STATES SHE WILL WRITE ORDERS IN FOR DIALYSIS TO TRANSFUSE TOMORROW. NO NEW ORDERS RECIEVED FOR TRANSFUSION AT THIS TIME.
--- NOTE | 2020-03-30 12:50 | NUR ---
DR HUMPHREY AT BEDSIDE AT THIS TIME. PROPOFOL TURNED OFF PER VERBAL ORDER OF DR HUMPHREY. VENT SETTINGS SWITCHED OVER TO SPONTANIOUS. PLAN TO EXTUBATE IN 1 HOUR LONG PATIENT MAINTAINS 02 SAT DURING SPONTANIOUS SETTING.
--- NOTE | 2020-03-30 14:30 | NUR ---
RT AT BEDSIDE. PATIENT EXTUBATED TO 4L NC. PATIENT TOLERATED WELL. BED IS LOCKED AND IN LOW POSITION. CALL LIGHT WITHIN REACH. WILL MONITOR.
--- NOTE | 2020-03-30 19:15 | NUR ---
PT ALERT, VOICES NEEDS, O2 @ 2L VIA N/C, LUNGS CLEAR, RIGHT GROIN HEMISPLIT INTACT WITH NS @ 50 CC/HR, GIVEN ICE CHIP, PT TOLERATED WELL, WILL CONT TO MONITOR
--- NOTE | 2020-03-30 20:50 | NUR ---
called [facility] AND GAVE UPDATE ON PT STATUS, WILL GET HD IN AM, PT DOING WELL
[2020-03-31] VITALS (23 sets, daily range): BP systolic 137–236; BP diastolic 50–110
[2020-03-31 04:43] LABS: BASOPHILS 0.2 % (0-2); EOSINOPHILS 0.4 % (0-7); HEMATOCRIT 24.4 % (36.0-48.0); HEMOGLOBIN 7.7 g/dL (12-16); IMMATURE GRANULOCYTES 1.3 % (0-5); LYMPHOCYTES 4.3 % (15-50); MCH 30.1 pg (26.0-34.0); MCHC 31.6 g/dL (31.0-37.0); MCV 95.3 fL (80.0-100.0); MEAN PLATELET VOLUME 9.9 fL (7.4-10.4); MONOCYTES 12.6 % (2-11); NEUTROPHILS 81.2 % (40-80); PLATELET COUNT 344 10x3/uL (130-400); RBC 2.56 10x6/uL (4.00-5.40); RDW 16.5 % (11.5-14.5); WBC 17.5 10x3/uL (4.8-10.8)
[2020-03-31 04:54] LABS: ANION GAP 18.5 mmol/L (8-16); CALCIUM 9.1 mg/dL (8.5-10.1); CARBON DIOXIDE 22.7 mmol/L (21.0-32.0); POTASSIUM - SERUM 4.2 mmol/L (3.5-5.1); VANCOMYCIN - RANDOM 20.6 ug/mL (10.0-20.0)
[2020-03-31 04:59] LABS: CREATININE - SERUM 6.6 mg/dL (0.6-1.3); PHOSPHOROUS 7.1 mg/dL (2.5-4.9)
--- NOTE | 2020-03-31 09:18 | NUR ---
PT ALERT AND ORIENTED, UNSURE ABOUT THE DAY. PT REPORT STATED THAT PT COULD RECEIVE ORAL MEDS WITH APPLESAUCE. PT TOLERATED MORNING MEDS OKAY. PT REPORTS SOME PAIN SEE EMAR.
--- NOTE | 2020-03-31 10:09 | NUR ---
PT DIET CHANGED TO [facility] SOFT, THIN LIQUIDS PER SWALLOW STUDY, RT.
--- NOTE | 2020-03-31 15:37 | NUR ---
PT HAD BM, PT IS INCONTINENT OF STOOL.
--- NOTE | 2020-03-31 16:15 | NUR ---
DIALYSIS AT THE BEDSIDE TO DIALYSIZE PT
--- NOTE | 2020-03-31 19:40 | NUR ---
Received multiple calls from family members including the pt's brother John, daughter, sister and caregivers from the assisted living center where the pt resides. All were inquiring about how the pt is doing.
[2020-04-01] VITALS (11 sets, daily range): BP systolic 151–184; BP diastolic 42–87
--- NOTE | 2020-04-01 04:01 | NUR ---
1900- RECEIVED REPORT FROM FLOOR NURSE. NO ACUTE DISTRESS. PATIENT HAD BM. CLEANED UP. PROVIDED NEW LINENS. SEE ASSESSMENT. SEE ADL. 2100- PATIENT HAD BM. CLEANED UP. PATIENT MENTIONED SHE FEELS DEPRESSED. SAT BY PATIENT AND REASSURED SHE IS BEING TAKEN CARE OF. TOLD HER I WOULD TRY AND CONTACT FAMILY SO THAT SHE MAY SPEAK TO THEM OVER THE PHONE. 2300- PATIENT BP RISING. SYSTOLIC 180'S. MEDS GIVEN PER OCT. 0100- PATIENT RESTING. NO ACUTE DISTRESS. BP LOWERING. NO ADVERSE EFFECTS FROM MEDICATION. PATIENT REPOSITIONED FOR COMFORT. 0300- PATIENT HAD ANOTHER BM. CLEANED UP. GIVEN BATH. PROVIDED NEW LINENS. PATIENT UPDATED ON HER CONDITION.
[2020-04-01 04:03] LABS: BASOPHILS 0.3 % (0-2); IMMATURE GRANULOCYTES 1.7 % (0-5); LYMPHOCYTES 4.3 % (15-50); MCH 29.4 pg (26.0-34.0); MEAN PLATELET VOLUME 9.5 fL (7.4-10.4); MONOCYTES 11.7 % (2-11); PLATELET COUNT 350 10x3/uL (130-400); RDW 17.4 % (11.5-14.5); WBC 14.1 10x3/uL (4.8-10.8)
[2020-04-01 04:13] LABS: HEMATOCRIT 34.1 % (36.0-48.0); HEMOGLOBIN 10.9 g/dL (12-16); MCV 91.9 fL (80.0-100.0); RBC 3.71 10x6/uL (4.00-5.40)
[2020-04-01 04:33] LABS: ANION GAP 19.5 mmol/L (8-16); CARBON DIOXIDE 22.5 mmol/L (21.0-32.0); VANCOMYCIN - RANDOM 28.9 ug/mL (10.0-20.0)
--- NOTE | 2020-04-01 08:00 | OP ---
PATIENT NAME: JACK HELM MEDICAL RECORD: [id number] :41 LOCATION:.[facility] D.2304 ADMISSION DATE:03/14/20 SURGEON: ORLIN ALLEN MD DATE OF OPERATION: 03/28/2020 PREOPERATIVE DIAGNOSES: 1. Sick sinus syndrome. 2. Symptomatic bradycardia. 3. Acute respiratory failure on the ventilator. 4. End-stage renal disease. POSTOPERATIVE DIAGNOSES: 1. Sick sinus syndrome, symptomatic bradycardia. 2. Acute respiratory failure, on ventilator. 3. End-stage renal disease. PROCEDURE: 1. Left subclavian vein dual lead pacemaker placement. 2. Fluoroscopic interpretation. SURGEON: Orlin Allen MD CO-SURGEON: David Madera MD REPORT OF PROCEDURE: The patient's left chest was prepped and draped in sterile fashion. A skin incision was made on the left superior lateral chest and a subcutaneous pouch was made over the pectoral fascia. Howells were used to cannulate the left subclavian vein times 2 and guidewires were advanced with ease. Fluoro was used to note that the wires were in good position in the venous system. Dilator trocar device was replaced over the wires and the wires and dilators were removed. The leads were advanced through the trocars until they rested in good position at the right atrial superior vena caval junction. At this point, Dr. Madera positioned the leads appropriately in the atrium and ventricle. Once the leads were noted to be in good position and functioning appropriately, then they were sutured into place with 2-0 TiCron. The leads were affixed to the pacemaker, which was placed into the subcutaneous pouch. We sutured the pacemaker to the pectoral fascia with a single interrupted 2-0 Ti-Cron. The wound was then irrigated out with antibiotic solution. The subcutaneous tissues were reapproximated with interrupted 3-0 Vicryl and the skin was closed with running subcutaneous 5-0 Monocryl. COMPLICATIONS: None. CONDITION: Stable. ANESTHESIA: General endotracheal and local. BLOOD LOSS: Minimal. TRANSINT:[id number] Voice Confirmation ID: [id number] DOCUMENT ID: [id number] OPERATIVE REPORT [id number] ALICJAORLIN AMBROCIO MD at 0800 CC: [id number] DICTATION DATE: 03/28/20 1331 LEAF STAMPER: 03/28/20 2226 ADM IN [facility] [address] [place] [id number]
--- NOTE | 2020-04-01 10:44 | NUR ---
Nutrition follow-up: Pt sitting in bed eating breakfast Pt with poor appetite; RDN gave pt a nutritional supplement per request labs reviewed Wt: 149# Tx to floor today RDN following.
--- NOTE | 2020-04-01 11:30 | OP ---
PATIENT NAME: CONNIE VILLASENOR MEDICAL RECORD: [id number] :42 LOCATION:.[facility] D.2304 ADMISSION DATE:03/14/20 SURGEON: KORY ACOSTA MD DATE OF OPERATION: 03/28/2020 PROCEDURE: Lead portion of permanent pacer placement. SURGEON: Orlin Scott MD INDICATION: Sick sinus syndrome with bradyarrhythmias and Torsades escape rhythm. DESCRIPTION OF PROCEDURE: After left subclavian was cannulated via modified Seldinger technique via Dr. Scott first under fluoroscopic guidance, I placed the RV lead in the RV apex without any difficulty. After adequate R waves and thresholds were obtained, the right atrial lead was placed in the right atrial appendage without any difficulty. After adequate P waves and thresholds were again obtained, leads were attached to appropriate poles of the generator and the pocket was closed via Dr. Scott. IMPRESSION: Successful lead portion of permanent pacemaker placement of Connie Villasenor. ESTIMATED BLOOD LOSS: Minimal. COMPLICATIONS: None. DISPOSITION: To the floor, stable. TRANSINT:[id number] Voice Confirmation ID: [id number] DOCUMENT ID: [id number] KORY ACOSTA MD at 1130 CC: [id number] DICTATION DATE: 03/28/20 1332 DENTAL CERAMIST: 03/28/20 2233 ADM IN [place] [id number] [place] [id number]
--- NOTE | 2020-04-01 12:42 | NUR ---
REPORT CALLED TO GIAN GREY AT THIS TIME.
--- NOTE | 2020-04-01 13:25 | NUR ---
PT TRANSFERRED TO ROOM PER BED AND BENNIE RN, PT OREINTED TO ROOM AND SURROUNDINGS, HEMOSPLIT SECURE WITH NS AT 50ML/HR INFUSING WITHOUT DIFFICULTY, SITE CLEAR, BED LOW AND LOCKED, SR UP X2, TELE SECURE AND BEING MONITORED, DOOR LEFT OPEN PER PT REQUEST, CALL LIGHT IN REACH, PT ALERT AND ORIENTED, O2 AT 2L IN USE PERNC,
[2020-04-02] VITALS (7 sets, daily range): BP systolic 134–173; BP diastolic 73–95; Ht 157.5 cm; Wt 63.0 kg
--- NOTE | 2020-04-02 03:37 | NUR ---
ASSESSED AT THE BEGINNING OF THE SHIFT. PT IS ALERT AND ORIENTED, ABLE TO VERBALIZE NEEDS. AT THE BEGINNING OF THE SHIFT SHE WAS CALLING THE NURSE OR SUPERVISOR TICKET SALES IN ALOT WANTING SOMETHING FOR HER NERVES AND FOR SOMEONE TO STAY IN THE ROOM. THIS KEPT UP FOR SEVERAL HOURS THROUGH ABOUT 2200. AFTER THAT IT WAS TIME FOR HER TO HAVE PAIN MEDS AND THAT WAS GIVEN. SHE ALSO GOT APRESOLINE FOR HER BP OF 182/85 AND SHE SLEPT FOR A VERY SHORT TIME. WHEN CHECKED ON LATER SHE STATED SHE WANTED TO HAVE SOMETHING FOR SLEEP AND WE MADE A PLAN TO TALK WITH HER MD IN THE MORNING.
[2020-04-02 05:42] LABS: ANION GAP 22.6 mmol/L (8-16); CARBON DIOXIDE 21.4 mmol/L (21.0-32.0); CREATININE - SERUM 6.1 mg/dL (0.6-1.3); VANCOMYCIN - RANDOM 21.7 ug/mL (10.0-20.0)
[2020-04-02 05:50] LABS: BASOPHILS 0.4 % (0-2); EOSINOPHILS 0.1 % (0-7); HEMATOCRIT 37.4 % (36.0-48.0); IMMATURE GRANULOCYTES 3.8 % (0-5); LYMPHOCYTES 4.1 % (15-50); MCH 30.2 pg (26.0-34.0); MCHC 32.1 g/dL (31.0-37.0); MEAN PLATELET VOLUME 10.5 fL (7.4-10.4); MONOCYTES 8.3 % (2-11); NEUTROPHILS 83.3 % (40-80); PLATELET COUNT 305 10x3/uL (130-400); RBC 3.98 10x6/uL (4.00-5.40); RDW 17.8 % (11.5-14.5)
--- NOTE | 2020-04-02 07:33 | NUR ---
WALKING ROUNDS COMPLETE, PT LAYING IN BED, ALERT AND ORIENTED, PT DENIES PAIN OR NEEDS, HEMOSPLIT SECURE, BED LOW AND LOCKED, SR UP X2, CALL LIGHT IN REACH, WILL CONTINUE TO MONITOR
--- NOTE | 2020-04-02 09:10 | NUR ---
PT TOOK AM MEDS WITHOUT DIFFICULTY, PT IS VERY SLEEPY TODAY, SHE STATES SHE JUST WANTS TO SLEEP, TURNED FAN ON FOR PT, SR UP X2, CALL LIGHT IN REACH, BED LOW AND LOCKED, WILL CONTINUE TO MONITOR
--- NOTE | 2020-04-02 12:45 | NUR ---
TOOK PT TO DIALYSIS ON BED, INFORMED TELE OF PT BEING OFF FLOOR TO TELE
--- NOTE | 2020-04-02 14:15 | NUR ---
called to go down to dialysis to CHECK PT BLOOD SUGAR 129, AND O2 SAT IS 95, PT IS VERY WEAK AND LETHARGIC TODAY, PT IS PALE IN COLOR, WILL MONITOR, TELE SHOWING 69 A PACED
--- NOTE | 2020-04-02 17:16 | NUR ---
PT ABLE TO TAKE MEDS, ONLY ABLE TO EAT ABOUT HALF OF PIE, PT DENIES PAIN OR NEEDS AT THIS TIME, WILL MONITOR
--- NOTE | 2020-04-02 22:21 | NUR ---
PT CONTINUES TO PRESS CALL LIGHT EVERY 5-10 MINUTES THE LAST 3 HOURS. SHE REPORTS FEELING ANXIOUS AND CANT BREATH. O2 SAT 96% ON ROOM AIR. SHE WAS GIVEN HYDRALAZINE AROUND 1930 AND LABETELOL AROUND 2200 FOR ELEVATED BLOOD PRESSURE. SEE VITALS FLOW SHEET. SPOKE WITH BING WEBB REGARDING THE ABOVE. A 1X ATIVAN DOSE WAS ORDERED AND GIVEN. PT NOW RESTING WITH EYES CLOSED. RESPIRATIONS EVEN AND UNLABORED. AROUSES WITH VERBAL STIMULI. BED IS LOW AND CALL LIGHT IS WITHIN REACH.
[2020-04-03] VITALS: BP 154/76
[2020-04-03 04:00] VITALS: BP 168/86
[2020-04-03 08:16] VITALS: BP 161/80
--- NOTE | 2020-04-03 08:48 | NUR ---
PT LETHARGIC, BUT AROUSED TO PAINFUL STIMULI. PT WOKE UP BUT HAD HARD TIME GETTING PT TO TAKE HER MEDICATIONS, HAD TO CRUSH MEDS SO PT WOULD TAKE THEM. PT REFUSED TO EAR BREAKFAST. O2 IS 95% ON 3L, PT BREATHING A LITTLE SHALLOW BUT EVEN. WILL CONTINUE TO MONITOR.
--- NOTE | 2020-04-03 12:13 | NUR ---
APRESOLINE GIVEN FOR HIGH BP, ALSO GAVE NORCO FOR PAIN LEVEL OF 5/10. PT REFUSING TO EAT ANYTHING. KEEPS SAYING THAT SHE IS DYING. FAMILY AT BEDSIDE, CALL YANIVT IN REACH.
[2020-04-03 12:57] VITALS: BP 173/82
[2020-04-03 13:11] LABS: HEMOGLOBIN 12.6 g/dL (12-16); MCH 30.5 pg (26.0-34.0); MCHC 32.3 g/dL (31.0-37.0); MCV 94.4 fL (80.0-100.0); MEAN PLATELET VOLUME 9.9 fL (7.4-10.4); PLATELET COUNT 389 10x3/uL (130-400); RBC 4.13 10x6/uL (4.00-5.40); RDW 17.6 % (11.5-14.5)
[2020-04-03 13:31] LABS: LYMPHOCYTES 9 % (15-50); MONOCYTES 1 % (2-11); NEUTROPHILS 90 % (40-80); PLATELET ESTIMATE INCREASED
[2020-04-03 13:36] LABS: ANION GAP 18.9 mmol/L (8-16); CALCIUM 9.5 mg/dL (8.5-10.1); CARBON DIOXIDE 24.2 mmol/L (21.0-32.0); CREATININE - SERUM 5.6 mg/dL (0.6-1.3); PHOSPHOROUS 6.9 mg/dL (2.5-4.9); VANCOMYCIN - RANDOM 19.6 ug/mL (10.0-20.0)
[2020-04-03 13:41] LABS: POTASSIUM - SERUM 4.1 mmol/L (3.5-5.1)
--- NOTE | 2020-04-03 17:05 | NUR ---
CALLED RESP THERAPIST AND SPOKE WITH FREDY, INFORMED HER THAT DR. HUMPHREY PUT IN ORDER FOR UPDRAFT FOR PT AND WANTS IT GIVEN ELIZ. FREDY STATED THAT SHE WOULD BE UP IN A LITTLE BIT.
[2020-04-03 17:15] VITALS: BP 168/85
--- NOTE | 2020-04-03 19:39 | NUR ---
PT IS AT REST AND OPENS EYES THEN SHUTS THEM AGAIN BED LOW AND LOCKED CALL LIGHT IS IN REACH
[2020-04-03 20:00] VITALS: BP 167/88
--- NOTE | 2020-04-03 20:32 | NUR ---
AFTER I HAD CRUSHED PILLS PT CLINCHED MOUTH AND PUT HAND UP REDFUSING TO TAKE PILLS SAID NO! MULTIPLE TIMES
--- NOTE | 2020-04-03 22:00 | NUR ---
I have reviewed this patient and I concur with the Shift Assessment completed by the Licensed Practical Nurse today this shift.RESTING IN BED RESP UNLABORED
[2020-04-04] VITALS: BP 156/87
[2020-04-04 04:00] VITALS: BP 171/84
[2020-04-04 07:02] LABS: ANION GAP 18.3 mmol/L (8-16); CALCIUM 9.3 mg/dL (8.5-10.1); CARBON DIOXIDE 23.8 mmol/L (21.0-32.0); CREATININE - SERUM 6.6 mg/dL (0.6-1.3); POTASSIUM - SERUM 4.1 mmol/L (3.5-5.1); VANCOMYCIN - RANDOM 21.1 ug/mL (10.0-20.0)
[2020-04-04 07:15] LABS: BASOPHILS 0.3 % (0-2); EOSINOPHILS 0 % (0-7); HEMATOCRIT 38.6 % (36.0-48.0); HEMOGLOBIN 12.3 g/dL (12-16); IMMATURE GRANULOCYTES 3.8 % (0-5); LYMPHOCYTES 4.7 % (15-50); MCH 29.9 pg (26.0-34.0); MCHC 31.9 g/dL (31.0-37.0); MCV 93.9 fL (80.0-100.0); MEAN PLATELET VOLUME 9.7 fL (7.4-10.4); MONOCYTES 8.3 % (2-11); NEUTROPHILS 82.9 % (40-80); PLATELET COUNT 477 10x3/uL (130-400); RBC 4.11 10x6/uL (4.00-5.40); RDW 17.8 % (11.5-14.5); WBC 25.5 10x3/uL (4.8-10.8)
--- NOTE | 2020-04-04 07:20 | NUR ---
RECEIVE SHIFT REPORT. RESTING IN BED, LETHARGIC. AROUSES TO VOICE. PATIENT STATES NO NEEDS AT THIS TIME. WILL CONTINUE TO MONITOR LEVEL OF CONCIOUSNESS. CALL LIGHT IN REACH. BED IN LOWEST POSITION.
--- NOTE | 2020-04-04 10:22 | MORECARE ---
CASE MANAGEMENT DISCHARGE SUMMARY PATIENT: JACK HELM UNIT: [id number] ADM DATE: 03/14/20 AGE: 79 : 41 SEX: F ROOM/BED: D.2101 AUTHOR: BYRON,DOC PHYSICIAN: REFERRING PHYSICIAN: TEE SALCEDO MD DATE OF SERVICE: 04/04/20 Discharge Plan Patient Name: JACK HELM Facility: [facility]:[place] : 1940 Planned Disposition: Home Health Service Anticipated Discharge Date: 03/23/20 Discharge Date: Expected LOS: 9 Initial Reviewer: [email or web address] Initial Review Date: 03/14/2020 Generated: 04/04/20 11:21 am DCP- Discharge Planning Updated by [email or web address]: Deborah Eric on 03/24/20 7:[address] CM contacted Young, with [employer] ([phone] [place]). When the patient is stable, CM will arrange transportation to [facility] ([phone]). CM [facility] Cassandra[facility] ([phone]) that the patient will not DC today. DCP- Discharge Planning Updated by [email or web address]: Deborah Eric on 03/23/20 4:[address] CM contacted Radha with [facility] to arrange transportation for tomorrow. The van will pick patient up 03/24 @1200 and transport to [facility]. Patient's S tank (portable) has been delivered to the patient's room and the home concentrator will be delivered prior to the patient's return home. DCP- Discharge Planning Updated by [email or web address]: Deborah Eric on 03/23/20 1:[address] Meagan[facility] with [facility] called back and states the seat van can fern picker the patient 03/24 morning, if the family is unable to drive the patient home. Meagan is attempting to contact the family for transportation today. ITALO contacted Meagan ([phone]), [facility] and the need for portable and home O2. Meagan recommended [facility], as this the DME company that the facility is contracted with. Per Kristina, with [facility], she states she is arranging transportation for the patient once she is cleared by nephrology. Per Pratik with [facility], he is trying to arrange delivery of portable O2 with [facility], here in [place]. CM notified Meagan, with [facility], that if we are unable to arrange portable O2 with [facility], then I will use a local DME. Multiple calls with [facility], with Pratik ([phone]) [facility], regarding portable and home O2. The DME does not routinely deliver to [place] and is attempting to arrange delivery with another company in . DC Plans: Home with [facility] ([phone], opt 1, Fx [phone]). Faxed appropriate information to Anneliese. Patient's brother will drive her home upon DC. CM met with patient to discuss initial discharge planning. Patient is in agreement to proceed with the assessment. Patient reports that she lives at [facility], in [place]. Patient is alert/oriented. Stairs/steps: 0. PCP: [facility]. [facility]acy[facility]. Patient states she has been able to obtain all of her prescribed medications. HHS: Anneliese Freda GARRETT #[phone]. DME: None. Patient gives permission to speak with her brother, Petros Fernandez ([phone]). 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 The facility assist with cooking, laundry, cleaning X1 each week. CM discussed the availability of HH, Rehab, SNF, OP Therapy, DME services. Patient denies the need for additional services at this time and feels safe returning to previous environment. Patient denies hospitalization within the past 30 days. Patient denies the use of community resources AOC PLANS INTELLIGENCE OFFICER CHIEF. Transportation at time of discharge: Petros Fernandez (son). CM will set up the [facility] with Anneliese [phone], opt 1. DCPIA - Discharge Planning Initial Assessment Updated by [email or web address]: Deborah Eric on 03/23/20 10:23 am * Is the patient Alert and Oriented? Yes * How many steps to enter\exit or inside your home? * PCP Hussain Ann * Pharmacy [facility] * [facility] * Facility [facility] * ADLs Independent * Equipment None * Other Equipment NA * List name and contact numbers for known caregivers / representatives who currently or will assist patient after discharge: Petros Fernandez (son) [phone] * Verbal permission to speak to the caregivers and representatives has been obtained from the patient. Yes * Community resources currently utilized Home Health * Please name any agencies selected above. [facility] * Additional services required to return to the preadmission environment? Yes * Can the patient safely return to the preadmission environment? Yes * Has this patient been hospitalized within the prior 30 days at any hospital? No Last DP export: 03/25/20 4:08 p Patient Name: JACK HELM Page [id number] at 1022 All edits/amendments must be made on the electronic document DICTATION DATE: 04/04/20 1021 CLOTH NAPPING SUPERVISOR: ROEL 04/04/20 1021 RPT#: [id number] DC DATE: STATUS: ADM IN [facility] [address] [place] [address] END OF REPORT
[2020-04-04 11:35] VITALS: BP 155/77
[2020-04-04 14:47] VITALS: BP 172/96
--- NOTE | 2020-04-04 15:15 | NUR ---
BLADDER SCAN SHOWS 118ML. NO IN AND OUT CATH NECESSARY
--- NOTE | 2020-04-04 19:00 | NUR ---
EVENING ROUNDS COMPLETE. PT LAYING IN BED, LETHARGIC, BUT AROUSES TO VOICE. PT IS NOT ORIENTED. NO SIGNS OF DISTRESS NOTED. CL IN REACH, BED IN LOWEST POSITION.
[2020-04-04 20:00] VITALS: BP 161/79
--- NOTE | 2020-04-05 07:19 | NUR ---
RECEIVE BEDSIDE SHIFT REPORT. LAB DRAWING BLOOD AT THIS TIME. LETHARGIC BUT AROUSES TO VOICE. WILL CONTINUE PLAN OF CARE AND SAFETY PRECAUTIONS.
[2020-04-05 07:23] LABS: HEMATOCRIT 34.3 % (36.0-48.0); HEMOGLOBIN 10.5 g/dL (12-16); MCH 29.8 pg (26.0-34.0); MCHC 30.6 g/dL (31.0-37.0); MCV 97.4 fL (80.0-100.0); MEAN PLATELET VOLUME 9.8 fL (7.4-10.4); PLATELET COUNT 363 10x3/uL (130-400); RBC 3.52 10x6/uL (4.00-5.40); WBC 32.4 10x3/uL (4.8-10.8)
[2020-04-05 07:37] LABS: ANION GAP 21.8 mmol/L (8-16); CALCIUM 8.9 mg/dL (8.5-10.1); CARBON DIOXIDE 20.2 mmol/L (21.0-32.0); CREATININE - SERUM 7.6 mg/dL (0.6-1.3); VANCOMYCIN - RANDOM 30.6 ug/mL (10.0-20.0)
[2020-04-05 07:58] VITALS: BP 155/72
[2020-04-05 08:12] LABS: EOSINOPHILS 1 % (0-7); LYMPHOCYTES 13 % (15-50); MONOCYTES 6 % (2-11); NEUTROPHILS 74 % (40-80); PLATELET ESTIMATE NORMAL
--- NOTE | 2020-04-05 10:31 | NUR ---
CALLED BING SPENCER ABOUT CRITICAL LAB VALUE, BUN 140. DIALYSIS TODAY SHOULD HELP. WAS ABLE TO GET HER TO TAKE HER BETAPACE THIS AM BUT NO OTHER PO MEDS. WBC COUNT IS UP TO 32.4. WILL CONTINUE TO MONITOR.
--- NOTE | 2020-04-05 13:22 | NUR ---
Nutrition Follow-up: Not eating. Per GATE TENDER, no s/s of aspiration but not safe to continue with PO intake 2/2 somnolent behavior; ST recs NGT D/T several days of this state. Diet: Renal, Nepro TID PO intake: 0% on 04/03 & 04/04 Wt: 138# (04/04); 145.5# (03/28) Last BM: 04/02 per chart Labs noted: K+ 5.0, Glu 203 Meds noted: Nephrovite, Renagel, Miralax -Rec initiate TF. If feeding tube placed, rec Nepro @ goal rate of 40 mL/hr. -Monitor wt; noted daily wts ordered. -RD following.
--- NOTE | 2020-04-05 15:15 | NUR ---
CHANGED PACEMAKER DRESSING. INCISION LOOKS CLEAN.
[2020-04-05 15:21] VITALS: BP 133/63
--- NOTE | 2020-04-05 17:16 | MORECARE ---
CASE MANAGEMENT DISCHARGE SUMMARY PATIENT: JACK HELM UNIT: [id number] ADM DATE: 03/14/20 AGE: 79 : 41 SEX: F ROOM/BED: D.8996 AUTHOR: BYRON,DOC PHYSICIAN: REFERRING PHYSICIAN: TEE ANDERSON MD DATE OF SERVICE: 04/05/20 Discharge Plan Patient Name: JACK HELM Facility: [facility]:[place] : 1940 Planned Disposition: Home Health Service Anticipated Discharge Date: 03/23/20 Discharge Date: Expected LOS: 9 Initial Reviewer: [email or web address] Initial Review Date: 03/14/2020 Generated: 04/05/20 6:15 pm Comments DCP- Discharge Planning Updated by [email or web address]: Deborah Eric on 04/05/20 4:[address] CM contacted [facility], spoke with Francis, who provided the POA name: Mare Rainey #[phone] and a brother, Petros Fernandez #[phone]. CM will contact Dr. Anderson to make aware for contact. DCP- Discharge Planning Updated by [email or web address]: Deborah Eric on 03/24/20 7:[address] CM contacted Young, with [employer] ([phone] [place]). When the patient is stable, CM will arrange transportation to [facility] ([phone]). CM notified Cassandra, with [facility] and [facility] ([phone]) that the patient will not DC today. DCP- Discharge Planning Updated by [email or web address]: Deborah Eric on 03/23/20 4:[address] CM contacted Radha with [facility] to arrange transportation for tomorrow. The van will pick patient up 03/24 @1200 and transport to [facility]. Patient's S tank (portable) has been delivered to the patient's room and the home concentrator will be delivered prior to the patient's return home. DCP- Discharge Planning Updated by [email or web address]: Deborah Eric on 03/23/20 1:[address] Meagan, with [facility] called back and states the seat van can milk pickup driver the patient 7 morning, if the family is unable to drive the patient home. Meagan is attempting to contact the family for transportation today. CM contacted Meagan ([phone]), with [facility] regarding transportation and the need for portable and home O2. Meagan recommended [employer] [facility] [employer], as this the DME company that the facility is contracted with. Per Kristina, with [facility], she states she is arranging transportation for the patient once she is cleared by nephrology. Per Pratik with [facility], he is trying to arrange delivery of portable O2 with [facility], here in [place]. CM notified Meagan, with [facility], that if we are unable to arrange portable O2 with [facility], then I will use a local DME. Multiple calls with [facility], with Pratik ([phone]) [facility], regarding portable and home O2. The DME does not routinely deliver to [place] and is attempting to arrange delivery with another company in . [place] Plans: [facility] with [facility] ([phone], opt 1, [place]x [phone]). Faxed appropriate information to Anneliese. Patient's brother will drive her home upon DC. CM met with patient to discuss initial discharge planning. Patient is in agreement to proceed with the assessment. Patient reports that she lives at [facility], in [place]. Patient is alert/oriented. Stairs/steps: 0. PCP: [facility]. Pharmacy: [facility]. Patient states she has been able to obtain all of her prescribed medications. HHS: [facility] #[phone]. DME: None. Patient gives permission to speak with her brother, Petros Fernandez ([phone]). 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 The facility assist with cooking, laundry, cleaning X1 each week. CM discussed the availability of HH, Rehab, SNF, OP Therapy, DME services. Patient denies the need for additional services at this time and feels safe returning to previous environment. Patient denies hospitalization within the past 30 days. Patient denies the use of community resources MANAGER OF MANUFACTURING. Transportation at time of discharge: Petros Fernandez (son). will set up the [facility] with Anneliese [phone], opt 1. DCPIA - Discharge Planning Initial Assessment Updated by [email or web address]: Deborah Eric on 03/23/20 10:23 am * Is the patient Alert and Oriented? Yes * How many steps to enter\exit or inside your home? * PCP Hussain Ann * [facility]acy [facility] * [facility] * [facility] * ADLs Independent * Equipment None * Other Equipment NA * List name and contact numbers for known caregivers / representatives who currently or will assist patient after discharge: Petros Fernandez (son) [phone] * Verbal permission to speak to the caregivers and representatives has been obtained from the patient. Yes * Community resources currently utilized Home Health * Please name any agencies selected above. [facility] * Additional services required to return to the preadmission environment? Yes * Can the patient safely return to the preadmission environment? Yes * Has this patient been hospitalized within the prior 30 days at any hospital? No Last DP export: 04/04/20 9:22 a Patient Name: JACK HELM Page [id number] at 1716 All edits/amendments must be made on the electronic document DICTATION DATE: 04/05/201714 GOLF PLAYER ASSISTANT: ROEL 04/05/201714 RPT#: [id number] DC DATE: STATUS: ADM IN [facility] [address] [place] [address] END OF REPORT
--- NOTE | 2020-04-05 19:00 | NUR ---
REPORT RECEIVED, WILL CONTINUE POC. PATIENT IS RESTING WITH EYES CLOSED. NO S/S OF DISTRESS OBSERVED, RR EVEN AND UNLABORED ON 3L O2 VIA NC. NO NEEDS EXPRESSED AT THIS TIME. CL IN REACH, BED LOCKED AND LOWERED. WILL CTM.
[2020-04-05 21:41] VITALS: BP 140/40
[2020-04-06] VITALS: BP 133/58
[2020-04-06 04:00] VITALS: BP 137/62
[2020-04-06 07:22] LABS: ANION GAP 22.7 mmol/L (8-16); CALCIUM 8.5 mg/dL (8.5-10.1); CARBON DIOXIDE 19.5 mmol/L (21.0-32.0); CREATININE - SERUM 7.7 mg/dL (0.6-1.3); POTASSIUM - SERUM 5.2 mmol/L (3.5-5.1); VANCOMYCIN - RANDOM 25.6 ug/mL (10.0-20.0)
--- NOTE | 2020-04-06 07:30 | NUR ---
PT SITTING UP IN BED, RR SHALLOW AND SOB. SPOKE WITH THREE DIFFERENT FAMILY MEMBERS THIS AM AND UPDATED ON POC TO BEST OF MY ABILITY. ASKED POLITELY IF THEY COULD SPREAD INFORMATION TO OTHER FAMILY MEMBERS TO MINIMIZE CALLS, VERBALIZED UNDERSTANDING. PT IS PALE. WILL ONLY RESPOND TO YES OR NO QUESTIONS WITH HEAD GESTURES (SHAKING HEAD YES OR NO) WILL NOT SPEAK. WAS ABLE TO TAKE MEDICATIONS CRUSHED AND WITH PUDDING. ALL MEDS RECIEVED, HOWEVER PT DID NOT WANT MORE THAN A FEW BITES OF PUDDING. UNABLE TO SIP DRINK THROUGH A STRAW. ASKED IF SHE NEEDED ANYTHING ELSE AND SHE SHOOK HER HEAD NO. CALL LIGHT WITHIN REACH. BED IN LOWEST POSITION. WILL CONTINUE TO MONITOR.
[2020-04-06 08:08] LABS: RBC 2.47 10x6/uL (4.00-5.40); WBC 28.1 10x3/uL (4.8-10.8)
[2020-04-06 08:09] LABS: BASOPHILS 0.5 % (0-2); EOSINOPHILS 0.4 % (0-7); HEMATOCRIT 23.4 % (36.0-48.0); HEMOGLOBIN 7.3 g/dL (12-16); IMMATURE GRANULOCYTES 5.4 % (0-5); LYMPHOCYTES 6.3 % (15-50); MCH 29.6 pg (26.0-34.0); MCHC 31.2 g/dL (31.0-37.0); MCV 94.7 fL (80.0-100.0); MEAN PLATELET VOLUME 10.4 fL (7.4-10.4); MONOCYTES 9.9 % (2-11); NEUTROPHILS 77.5 % (40-80); PLATELET COUNT 288 10x3/uL (130-400); RDW 17.9 % (11.5-14.5)
--- NOTE | 2020-04-06 09:40 | NUR ---
DIALYSIS COORDINATOR: JOVANI SCHMITT DIALYS[facility] REDDY/DEONNA/SAT @ 7:00AM. RIGOBERTO NEWMAN.
[2020-04-06 11:25] VITALS: BP 139/62
--- NOTE | 2020-04-06 12:19 | NUR ---
I have reviewed this patient and I concur with the Shift Assessment completed by the Licensed Practical Nurse today this shift.
--- NOTE | 2020-04-06 15:45 | NUR ---
RECEIVED PT FROM [facility]. PT IS AWAKE AND MOANING, PT HAS A UNIT OF BLOOD TRANSFUSING AND WAS ADVISED PT NEEDS 2 MORE UNITS OF BLOOD. JEISON IN LAB CALLED AND STATED PLASMA IS READY AND CAN HAVE BLOOD READY IF NEEDED. DIALYSIS NURSE IN ROOM WITH PT. CONTINUE WITH PLAN OF CARE
--- NOTE | 2020-04-06 16:57 | NUR ---
CALLED INTO ROOM BY DIALYSIS PT GASPING FOR AIR, O2 AT 60. PT HAS PACEMAKER HR AT 70. DR NAIR AND RT AT BEDSIDE, NO PULSE FELT PT . WILL NOTIFY FAMILY
--- NOTE | 2020-04-06 17:04 | NUR ---
PT ARRIVED TO ICU ROOM JUST BEFORE TIRE MAINTENANCE TECHNICIAN. I BEGAN SETUP PT WAS GETTING 1 UNIT PRBC'S. AT 1617 TX STARTED AND I HAD A UNIT OF BLOOD HUNG UP AT BEGINNING. PT STARTING RESPIRATIONS WERE 16 AND O2 SAT WAS AT 100% INITIALLY. BY 1630 PT B/P DROPPED TO 59/28 AND SHE HAD STOPPED BREATHING. CALLED FOR PRIMARY NURSE. DID STERNAL RUB, AND PT GASPED FOR AIR BUT WAS GUPPY BREATHING. CONTACTED Minal PHILLIPS MANDREL MAKER FOR RENAL TO LET HER KNOW THAT I WAS RETURNING BLOOD. SHE WAS ON MED 2 AND CAME TO SEE PT.
--- NOTE | 2020-04-06 18:20 | NUR ---
RECEIVED CALL FROM PT NITO HOLGUIN WHO CALLED FAMILY AND WAS ADVISED THEY WOULD LIKE BODY SENT TO [facility]. ASKED IF SOMEONE WOULD BE ABLE TO COME AND SIGN FOR RELEASE OF BODY WHICH MS. SCHAEFFER THEN STATED SHE WILL CALL FAMILY AND SEE IF SOMEONE CAN COME. PT BROTHER MONIE HAS BEEN CONTACTED AND NOW THEY ARE TRYING TO CONTACT PT SON. TD NOTIFIED WELL.
--- NOTE | 2020-04-06 18:40 | NUR ---
PT SON KYRIE CAME AND SAW PT AND RECEIVED VALUBLES AND SIGNED FORM STATING HE RECEIVED PT DUONG. HOME NOTIFIED BY RN NO OTHER NEEDS AT THIS TIME
--- NOTE | 2020-04-06 19:14 | NUR ---
PT BODY PICKED UP BY HOME
== END 2020-04-06 19:14 | DRG 242 ==
LOC: D.ER 15:13 → D.CVICU 18:47 → D.M2 18:47 → D.ICU 18:47 → D.CVICU 03-26 09:48 → D.ICU 03-29 09:13 → D.M2 04-01 13:17 → D.ICU 04-06 15:25
PROVIDERS: Emergency Medicine; Family Medicine; Internal Medicine; Internal Medicine Interventional Cardiology; Internal Medicine Nephrology; Surgery; ADMIT Internal Medicine Nephrology; ATTEND Internal Medicine Nephrology
PROC: 05PY3YZ Removal of Other Device from Upper Vein, Percutaneous Approach (ICD-10-PCS; 2020-03-14)
PROC: 06HM33Z Insertion of Infusion Device into Right Femoral Vein, Percutaneous Approach (ICD-10-PCS; 2020-03-14)
PROC: B54BZZA Ultrasonography of Right Lower Extremity Veins, Guidance (ICD-10-PCS; 2020-03-14)
PROC: 05LD0ZZ Occlusion of Right Cephalic Vein, Open Approach (ICD-10-PCS; principal; 2020-03-14 16:30)
PROC: 5A1D70Z Performance of Urinary Filtration, Intermittent, Less than 6 Hours Per Day (ICD-10-PCS; 2020-03-15)
PROC: B2111ZZ Fluoroscopy of Multiple Coronary Arteries using Low Osmolar Contrast (ICD-10-PCS; 2020-03-24)
PROC: B2151ZZ Fluoroscopy of Left Heart using Low Osmolar Contrast (ICD-10-PCS; 2020-03-24)
PROC: 4A023N7 Measurement of Cardiac Sampling and Pressure, Left Heart, Percutaneous Approach (ICD-10-PCS; 2020-03-24)
PROC: 5A1955Z Respiratory Ventilation, Greater than 96 Consecutive Hours (ICD-10-PCS; 2020-03-26)
PROC: 0BH17EZ Insertion of Endotracheal Airway into Trachea, Via Natural or Artificial Opening (ICD-10-PCS; 2020-03-26)
PROC: 0JH606Z Insertion of Pacemaker, Dual Chamber into Chest Subcutaneous Tissue and Fascia, Open Approach (ICD-10-PCS; 2020-03-28)
PROC: 02HK3JZ Insertion of Pacemaker Lead into Right Ventricle, Percutaneous Approach (ICD-10-PCS; 2020-03-28)
PROC: 02H63JZ Insertion of Pacemaker Lead into Right Atrium, Percutaneous Approach (ICD-10-PCS; 2020-03-28)
PROC: 0J2WXYZ Change Other Device in Lower Extremity Subcutaneous Tissue and Fascia, External Approach (ICD-10-PCS; 2020-03-29)
DX: T82.898A Other specified complication of vascular prosthetic devices, implants and grafts, initial encounter (principal); N18.6 End stage renal disease; J96.00 Acute respiratory failure, unspecified whether with hypoxia or hypercapnia; J15.6 Pneumonia due to other Gram-negative bacteria; I12.0 Hypertensive chronic kidney disease with stage 5 chronic kidney disease or end stage renal disease; I42.8 Other cardiomyopathies; D62 Acute posthemorrhagic anemia; I47.2 Ventricular tachycardia; E87.2 Acidosis; K92.2 Gastrointestinal hemorrhage, unspecified; E87.1 Hypo-osmolality and hyponatremia; I82.432 Acute embolism and thrombosis of left popliteal vein; J98.11 Atelectasis; I46.9 Cardiac arrest, cause unspecified; Y83.9 Surgical procedure, unspecified as the cause of abnormal reaction of the patient, or of later complication, without mention of misadventure at the time of the procedure; Z99.2 Dependence on renal dialysis; Z66 Do not resuscitate; I95.9 Hypotension, unspecified; D63.1 Anemia in chronic kidney disease; S40.011A Contusion of right shoulder, initial encounter; X58.XXXA Exposure to other specified factors, initial encounter; E87.5 Hyperkalemia; R53.81 Other malaise